=== PATIENT | female | born 1990 | race Caucasian/White ===

== ENCOUNTER 2020-05-24 08:53 | Outpatient (REF) | payer MEDICAID, SELFPAY ==
[2020-05-25 09:38] LABS: BV Int Neg Control Negative (Negative); BV Int Pos Control Positive (Positive)
[2020-05-25 21:12] LABS: C. trachomatis RNA TMA NOT DETECTED (NOT DETECTED); N. gonorrhoeae RNA TMA NOT DETECTED (NOT DETECTED)
[2020-06-01 05:52] LABS: HPV 16 RNA NOT DETECTED (NOT DETECTED); HPV mRNA E6/E7 rflx Detected (Not Detected)
== END 2020-05-24 08:54 | disposition home or self-care (01) ==
LOC: HO.LAB 08:53
PROVIDERS: Visit Provider Obstetrics & Gynecology
DX: Z01.419 Encounter for gynecological examination (general) (routine) without abnormal findings (principal); Z11.3 Encounter for screening for infections with a predominantly sexual mode of transmission
CPT/HCPCS: 36415; 87480; 87491; 87510; 87591; 87624; 87625; 87660; 88142

== ENCOUNTER 2020-06-23 13:03 | Outpatient (REF) | payer MEDICAID, SELFPAY ==
[2020-06-24 09:21] LABS: CT PCR NOT DETECTED (Not Detect.); NG PCR NOT DETECTED (Not Detect.)
[2020-06-24 11:30] LABS: BV Int Neg Control Negative (Negative); BV Int Pos Control Positive (Positive)
== END 2020-06-23 13:04 | disposition home or self-care (01) ==
LOC: HO.LAB 13:03
PROVIDERS: Visit Provider Obstetrics & Gynecology
DX: R87.612 Low grade squamous intraepithelial lesion on cytologic smear of cervix (LGSIL) (principal); Z11.3 Encounter for screening for infections with a predominantly sexual mode of transmission; A59.9 Trichomoniasis, unspecified
CPT/HCPCS: 57454; 87480; 87491; 87510; 87591; 87660; 88305; 88342; 88360; 99212

== ENCOUNTER 2021-02-23 18:38 | Emergency (ER) | payer MEDICAID, SELFPAY ==
[2021-02-23 19:22] VITALS: BP 112/68; PULSE 76; RESP 16; TEMP 36.6; O2SAT 100; BMI 20.8
--- NOTE | 2021-02-23 20:25 | ED_ITS ---
HPI - Dental/Oral General Chief complaint: Dental/Oral Stated complaint: tooth pain Time Seen by Provider: 02/23/21 20:24 Source: patient and pulmonologist Mode of arrival: ambulatory Limitations: no limitations History of Present Illness HPI Narrative: 30-year-old female in for evaluation of dental pain and facial swelling. Patient been having dental decay and dental pain over the left canine tooth, swelling of the left maxillary area, no fever, no chills. Related Data Previous Rx's Medication Instructions Recorded prenat.vits,willem,[id number] 1 tab PO DAILY #90 tab 05/24/20 metronidazole 500 mg tablet 500 mg PO BID #14 tab 05/25/20 metronidazole 0.75 % vaginal gel 1 appful VAGINAL BEDTIME 5 Days 07/04/20 (Metrogel Vaginal) #70 g amoxicillin 500 mg capsule 500 mg PO Q8H #20 cap 02/23/21 ibuprofen 800 mg tablet 800 mg PO TID PRN #20 tab 02/23/21 Allergies Allergy/AdvReac Type Severity Reaction Status Date / Time No Known Allergies Allergy Unverified 06/23/20 13:19 [No Known Allergies*] Review of Systems Review of Systems: All other systems are reviewed and are negative Constitutional: Reports as per HPI and Reports no additional constitutional complaints Eyes: Reports as per HPI and Reports no additional eye complaints Reports system reviewed and no additional complaints, except as documented Cardiovascular: Reports as per HPI and Reports no additional cardiovascular complaints Respiratory: Reports as per HPI and Reports no additional respiratory complaints Gastrointestinal: Reports as per HPI and Reports no additional gastrointestinal complaints Genitourinary: Reports no additional female genitourinary complaints Musculoskeletal: Reports no additional musculoskeletal complaints Skin/Breast: Reports system reviewed and no additional complaints, except as docu Psychiatric: Reports no additional psychiatric complaints Endocrine: Reports no additional endocrine complaints Hematologic/Lymphatic: Reports no additional hematologic/lymphatic complaints Allergic/Immunologic: Reports no additional allergic/immunologic complaints Reports system reviewed and no additional complaints, except as documented and Reports Abnormal speech present [facility] Past Medical History Medical History No known health problems Social History Social History Alcohol intake: never Advance Directives: No Advance Directives Information Provided: No Patient : No Sexual orientation: Straight/Heterosexual Gender identity: Female Physical Exam Vital Signs: Vital Signs: Last Vital Signs Temp 97.8 F 02/23/21 19:22 Pulse 76 02/23/21 19:22 Resp 16 02/23/21 19:22 BP 112/68 02/23/21 19:22 Pulse Ox 100 02/23/21 19:22 Body Mass Index 20.8 vital signs have been reviewed as appeared to be correct. Blood pressure normal. Heart rate normal. Respiration rate normal. Temperature normal. Oxygen saturation normal. Appearance: Alert. Oriented X3. No acute distress. Head: Normal external exam. Normocephalic. Atraumatic. No Moy signs noted. No raccoon eyes noted . Face: Mild swelling and tenderness without fluctuation over left maxillary area, left upper canine tooth lows with tenderness and decay, no discrete fluctuation or gum abscess. Eyes: PERRLA. EOMI. Conjunctiva and sclera normal. Eyelids normal. ENT: TM's Normal. Pharynx normal. Uvula midline. Moist mucous membranes. No trismus noted. No drooling noted. No muffled voice noted. Neck: Normal inspection. Neck supple. FROM. No adenopathy. Thyroid Normal. No me ningeal signs. No neck mass noted. CVS: Normal heart rate and rhythm. Heart sound normal. No murmurs noted. Pulses normal throughout. Respiratory: No respiratory distress. Painless inspiration. Breath sounds normal. No wheezes/rales/rhonchi noted. Chest nontender. No accessory muscle usage noted or decreased air movement noted. Abdomen: Soft and nontender. Bowel sounds normal in all 4 quadrants. No distention noted. No organomegaly noted. No visible injury noted. Back: No CVA tenderness. Full range of motion noted. Skin: Skin warm and dry. Normal skin color. Normal skin turgor. No ra shes/lesions/lacerations noted. Extremities: No lower extremity edema. Extremities exhibit normal range of motion. Extremities nontender. Neuro: Oriented X 3. Cranial nerve exam: II-XII are grossly intact No motor deficit. No sensory deficit. Reflexes normal. Course Course Course Narrative: Assessment and plan. 30-year-old female came in for a dental infection and facial cellulitis. Will start on amoxicillin, NSAIDs, follow-up with dentist. Discharge Plan Discharge Clinical Impression: Toothache, Cellulitis of face Patient Disposition: Home, Self-Care Instructions: Cellulitis (ED), Toothache (ED) Additional Instructions: follow-up with your dentist in 2 days. Prescriptions: New amoxicillin 500 mg capsule 500 mg PO Q8H Qty: 20 RF: 0 ibuprofen 800 mg tablet 800 mg PO TID PRN (Reason: pain) Qty: 20 RF: 0 No Action metronidazole 500 mg tablet 500 mg PO BID Qty: 14 RF: 1 metronidazole [Metrogel Vaginal] 0.75 % gel 1 appful vaginal BEDTIME 5 Days Qty: 70 RF: 0 prenat.vits,willem,[id number] Tablet 1 tab PO DAILY Qty: 90 RF: 3
[2021-02-23 20:40] VITALS: BP 126/71; PULSE 75; RESP 18; TEMP 37; O2SAT 100
[2021-02-23] MEDS: Ibuprofen 800 MG TABLET PO (20:40)
== END 2021-02-23 20:44 | disposition home or self-care (01) ==
PROVIDERS: Emergency Provider Emergency Medicine
DX: K08.89 Other specified disorders of teeth and supporting structures (principal); L03.211 Cellulitis of face
CPT/HCPCS: 99283

== ENCOUNTER 2022-01-12 15:49 | Emergency (ER) | payer MEDICAID, SELFPAY ==
[2022-01-12 16:44] VITALS: BP 131/82; PULSE 88; RESP 18; TEMP 37.2; O2SAT 100; BMI 21.4
--- NOTE | 2022-01-12 19:30 | ED_ITS ---
HPI - General Adult General Chief complaint: General Medical Stated complaint: vaginal infection Time Seen by Provider: 01/12/22 19:24 Source: patient Mode of arrival: ambulatory Limitations: language barrier History of Present Illness HPI narrative: 31-year-old female presents with vaginal itching, labial swelling, and vaginal discharge. She has had similar episodes in the past where she was diagnosed with bacterial vaginosis, and feels that this is similar. She has had the same sexual partner, and does not believe that she is at risk for sexually transmitted infections at this time. She has been using [id number]-[id number] medications for yeast with poor effect. She has had for pregnancies with vaginal delivery. She does not report any pelvic pain, abdominal pain, dysuria, fevers, chills, nausea, vomiting, or weakness. Onset (ago): day(s) (3) Location: genitals Radiation: non-radiation Severity: moderate Severity scale (1-10): 6 Quality: burning Pain Consistency: constant Relieving factors: none Exacerbating factors: movement Associated symptoms: denies other symptoms Treatments prior to arrival: other (OTC yeast treatments) Related Data Previous Rx's Medication Instructions Recorded prenat.vits,willem,[id number] 1 tab PO DAILY #90 tabs 05/24/20 metronidazole 500 mg tablet 500 mg PO BID #14 tabs 05/25/20 metronidazole 0.75 % (37.5 mg/5 1 appful vaginal BEDTIME 5 days 07/04/20 gram) vaginal gel (Metrogel #70 grams Vaginal) amoxicillin 500 mg capsule 500 mg PO Q8H #20 caps 02/23/21 ibuprofen 800 mg tablet 800 mg PO TID PRN pain #20 tabs 02/23/21 metronidazole 500 mg tablet 500 mg PO Q12H 7 days #14 tabs 01/12/22 Allergies Allergy/AdvReac Type Severity Reaction Status Date / Time No Known Allergies Allergy Verified 01/12/22 16:44 [No Known Allergies*] Review of Systems Review of Systems: Constitutional: No Fever, No Chills ENT/Mouth: No sore throat, No Rhinorrhea Eyes: No Eye Pain, No Redness Cardiovascular: No Chest Pain, No SOB Respiratory: No Cough, No Sputum, No Wheezing Gastrointestinal: No Nausea, No Vomiting, No Diarrhea, no abdominal pain, Genitourinary: No irregular bleeding, No Dysuria, No Urinary Frequency, no pelvic pain, positive labial swelling and vaginal discharge Musculoskeletal: No Myalgias Skin: No rash Neuro: No Weakness, No Headache Psych: No Anxiety/Panic, No Depression Heme/Lymph: No bruising, No Lymphadenopathy Endocrine: No Polyuria, No Polydipsia Yes all other systems are reviewed and are negative [facility] Past Medical History Attestation statement: The following information was validated with the patient. Source: old records reviewed Medical History No known health problems Social History Social History Alcohol intake: never Advance Directives: No Advance Directives Information Provided: No Sexual orientation: Straight/Heterosexual Gender identity: Female Physical Exam ED Vital Signs: Vital Signs - 24 hr 01/12/22 16:44 Temperature 98.9 F Pulse Rate 88 Respiratory Rate 18 Blood Pressure 131/82 Pulse Oximetry 100 Oxygen Delivery Method Room Air BMI result Body Mass Index 21.4 Appearance: Alert. Oriented X3. No acute distress. Eyes: Pupils equal, round and reactive to light. ENT: Pharynx normal. Neck: Normal inspection. Neck supple. CVS: Normal heart rate and rhythm. Pulses normal. Respiratory: No respiratory distress. Breath sounds normal. Abdomen: Soft and nontender. Skin: Skin warm and dry. Normal skin color. Normal skin turgor. Extremities: No lower extremity edema. Gait well-balanced well coordinated. Neuro: No motor deficit. No sensory deficit. Cranial nerves 2-12 intact. General: Yes Bimanual renal exam normal bilaterally and Yes no CVA tenderness External Female Exam: normal appearance of the urethra, No Abnormal introitus, external swelling and No laceration Speculum Exam - Vagina: abnormal vaginal discharge white; not malodorous and not frothy, not erythematous, no foreign bodies, no lesions, No vaginal bleeding, No tissue present in vagina, no masses, swelling and introitus not gaping Speculum Exam - Cervix: normal appearance of the cervix, normal palpation, Cervical os closed, no masses, multiparous, not patulous and nontender Bimanual exam- vagina & uterus: normal bimanual exam, normal palpation, No Cervical tenderness present and no cervical motion tenderness Bimanual Exam- Adnexa, other: normal adnexae OB/external & speculum: no foreign bodies, no tissue noted in vagina and vaginal bleeding Back/Spine/Pelvis Back: no CVA tenderness Course Course Course Narrative: 31-year-old female presents with vaginal itching, labial swelling, and vaginal discharge. States that she has been using [id number]-[id number] vaginal ointments and products to help reduce the pain, swelling and itching. She has a history Gardnerella and Trichomonas in the past. She has been with the same sexual partner, does not believe that she is at risk for sexually transmitted infections at this time. She has had 4 vaginal deliveries without any complications. She does not report sexual trauma, assault or abuse. I did discuss pelvic exam with this patient, who agrees with plan. Will order trichomoniasis, BV, CT and she. At this time patient respectfully declines chlamydia and gonorrhea treatment, and does understand the these tests come back positive she should return for treatment. Will treat for bacterial vaginosis and yeast, topical hydrocortisone treatment 2% for labial inflammation. Topical hydrocortisone 2% preferred over the oral prednisone to reduce candidiasis flourishing. staff interpreter and [employer] at bedside for office nurse during pelvic exam. Will treat with Flagyl and Diflucan. Bilateral labia minora and majora erythematous and swollen consistent with vaginitis. Copious amounts of thick white discharge, no cervical motion tenderness, no adnexal tenderness, low likelihood of PID. Patient verbalized understanding of and agrees to plan of care discharge home. Verbalized understanding of signs and symptoms indicating need for emergent intervention. Understands she must follow-up with community health advocate if symptoms persist, staff interpreter utilized for all correspondence. Google translate utilized for discharge instructions. Medical Decision Making Differential Diagnosis Differential Diagnosis: STI, candidiasis, BV, vaginitis, PID Medical Records Medical records reviewed: Yes I reviewed the patient's medical records. Lab Data Lab results reviewed: Yes I reviewed the patient's lab results. Discharge Plan Discharge Clinical Impression: Vaginitis, Bacterial vaginosis Patient Disposition: Home, Self-Care Instructions: Bacterial Vaginosis (ED), Vaginal Discharge (ED) Additional Instructions: You were evaluated for vaginal discharge and swelling. We are treating you for bacterial vaginitis with Flagyl 500 mg twice a day for the next 7 days. Do not drink alcohol while taking this medication. For vaginal labial swelling, apply hydrocortisone cream twice a day. Please follow-up with community health advocate if symptoms worsen. I referred you to Dr. Reeder. Thank you for choosing this emergency department for evaluation. Please follow-up with primary care physician as needed. Return to the emergency department for any new, concerning, or worsening symptoms. Prescriptions: New metronidazole 500 mg tablet 500 mg PO Q12H 7 Days Qty: 14 0RF No Action metronidazole 500 mg tablet 500 mg PO BID Qty: 14 1RF metronidazole [Metrogel Vaginal] 0.75 % gel 1 appful vaginal BEDTIME 5 Days Qty: 70 0RF amoxicillin 500 mg capsule 500 mg PO Q8H Qty: 20 0RF ibuprofen 800 mg tablet 800 mg PO TID PRN (Reason: pain) Qty: 20 0RF prenat.vits,willem,blu-[id number]-jistr Tablet 1 tab PO DAILY Qty: 90 3RF Referrals: Alberto Reeder MD [Physician] - 1 week (Vaginitis) Stand Alone Forms: Work/School Release Discharge Date/Time: 01/12/22 22:37
[2022-01-12] MEDS: metroNIDAZOLE 500 MG TABLET PO (22:21)
[2022-01-12] MEDS: Fluconazole 150 MG TABLET PO (22:21)
[2022-01-12] MEDS: Hydrocortisone 2.5 % Rectal Cr 30 GM TUBE 1 APPL PR (22:21)
[2022-01-13 11:56] LABS: CT PCR NOT DETECTED (Not Detect.); NG PCR NOT DETECTED (Not Detect.)
[2022-01-13 14:07] LABS: BV Int Neg Control Negative (Negative); BV Int Pos Control Positive (Positive)
== END 2022-01-12 22:37 | disposition home or self-care (01) ==
PROVIDERS: Nurse Practitioner Family; Emergency Provider Emergency Medicine Emergency Medical Services
DX: N76.0 Acute vaginitis (principal)
CPT/HCPCS: 87480; 87491; 87510; 87591; 87660; 99282; 99283

== ENCOUNTER 2023-01-11 12:16 | Emergency (ER) | payer MEDICAID, SELFPAY ==
[2023-01-11 12:30] VITALS: BP 113/82; RESP 19; TEMP 36.6; BMI 21.2
--- NOTE | 2023-01-11 12:32 | ED.DENTAL ---
HPI - Dental/Oral General Chief complaint: Dental/Oral Stated complaint: Facial swelling Time Seen by Provider: 01/11/23 12:31 Source: patient Mode of arrival: ambulatory Limitations: no limitations History of Present Illness HPI Narrative: 32 yo female presenting with left upper dental pain and left upper facial swelling that started yesterday and got worse today. She has 2 broken upper teeth on the left side and that is where the pain is. She states her gums hurt, the pain is radiating to the left ear and head. She is fully able to open and close the jaw. She denies any fevers, chills or drainage of pus from the area. She does not have a dentist. MD Complaint: tooth pain Location: Tooth # (10 & 11) Onset (ago): day(s) (1) Duration: worsening Severity: severe Severity scale (1-10): 8 Relieving factors: nothing Exacerbating factors: chewing Context: history of dental caries and poor dental care Associated symptoms: gum swelling and ear pain Treatment prior to arrival: none Related Data Previous Rx's Medication Instructions Recorded prenat.vits,willem,qdv-etft-[id number] 1 tab PO DAILY #90 tabs 05/24/20 metronidazole 500 mg tablet 500 mg PO BID #14 tabs 05/25/20 metronidazole 0.75 % (37.5 mg/5 1 appful vaginal BEDTIME 5 days 07/04/20 gram) vaginal gel (Metrogel #70 grams Vaginal) amoxicillin 500 mg capsule 500 mg PO Q8H #20 caps 02/23/21 ibuprofen 800 mg tablet 800 mg PO TID PRN pain #20 tabs 02/23/21 metronidazole 500 mg tablet 500 mg PO Q12H 7 days #14 tabs 01/12/22 fluconazole 150 mg tablet 150 mg PO Q3D 2 doses #2 tabs 01/15/22 (Diflucan) amoxicillin 875 mg-potassium 1 tab PO BID #20 tabs 01/11/23 clavulanate 125 mg tablet chlorhexidine gluconate 0.12 % 15 ml buccal BID #473 mL 01/11/23 mouthwash (Peridex) ibuprofen 600 mg tablet 600 mg PO Q8H PRN pain #30 tabs 01/11/23 tramadol 50 mg tablet 50 mg PO BID PRN severe pain 01/11/23 (scale score 7-10) #6 tabs Allergies Allergy/AdvReac Type Severity Reaction Status Date / Time No Known Allergies Allergy Verified 01/11/23 12:30 [No Known Allergies*] Review of Systems Review of Systems: Yes all other systems are reviewed and are negative [facility] Past Medical History Medical History No known health problems Social History Social History Alcohol intake: never Advance Directives: No Sexual orientation: Straight/Heterosexual Gender identity: Female Physical Exam Vital Signs: Vital Signs: Last Vital Signs Temp 98 F 01/11/23 12:30 Resp 19 01/11/23 12:30 BP 113/82 01/11/23 12:30 O2 Del Method Room Air 01/11/23 12:30 BMI result Body Mass Index 21.2 Appearance: Alert. Oriented X3. No acute distress. Head/face: normocephalic, atraumatic. mild/moderate swelling of the left maxillary area. Eyes: normal inspection. no periorbital swelling or erythema ENT: Pharynx w/ moist mucus membranes. 2 broken teeth #10 and 11 with associated gingival erythema and tenderness, no palpable fluctuant areas. broken teeth are not mobile. No tonsillar swelling or exudate. Neck: Normal inspection. Neck supple.No anterior neck swelling Respiratory: No respiratory distress. Skin: Skin warm and dry. Normal skin color. Normal skin turgor. No rashes. Extremities: Normal inspection x4, no joint swelling Neuro/psych: Oriented X 3. grossly normal, nonfocal Medical Decision Making Medical Decision Making MDM Narrative: 32 yo female presenting with left upper dental pain and associated left upper facial swelling. exam is c/w abscess. no trismus, no neck swelling. no fluctuant areas on exam amenable to I&D today. will start abx, pain control, and refer to dental. emergency list given to patient along w/ return precautions. comfortable w/ discharge home. Differential Diagnosis Differential Diagnoses: The differential diagnosis associated with the presentation includes dental abscess, dental trauma, toothache, sinus infection External Record Review External record reviewed: Prior outpatient labs Tests considered The following testing was considered but not selected: considered labs work and CT scan of her facial bones Prescription Management I considered prescription management with: Pain Medication and Antibiotic Chronic Conditions Patient?s care impacted by: Other (poor dental care) Critical Care Time Critical Care Time Critical Care Time: No Discharge Plan Discharge Clinical Impression: Abscess, dental Patient Disposition: Home, Self-Care Instructions: Dental Abscess (ED) Additional Instructions: Take the prescribed antibiotics as directed, complete the entire course and do not miss any doses Follow up with a dentist as soon as possible If you develop new or worsening symptoms call 911 or come back to the ER for further evaluation. Prescriptions: New amoxicillin-pot clavulanate 875-125 mg tablet 1 tab PO BID Qty: 20 0RF ibuprofen 600 mg tablet 600 mg PO Q8H PRN (Reason: pain) Qty: 30 0RF chlorhexidine gluconate [Peridex] 0.12 % mouthwash 15 ml buccal BID Qty: 473 0RF tramadol 50 mg tablet 50 mg PO BID PRN (Reason: severe pain (scale score 7-10)) Qty: 6 0RF No Action metronidazole 500 mg tablet 500 mg PO BID Qty: 14 1RF metronidazole [Metrogel Vaginal] 0.75 % gel 1 appful vaginal BEDTIME 5 Days Qty: 70 0RF metronidazole 500 mg tablet 500 mg PO Q12H 7 Days Qty: 14 0RF fluconazole [Diflucan] 150 mg tablet 150 mg PO Q3D Qty: 2 0RF amoxicillin 500 mg capsule 500 mg PO Q8H Qty: 20 0RF ibuprofen 800 mg tablet 800 mg PO TID PRN (Reason: pain) Qty: 20 0RF prenat.vits,willem,[id number] Tablet 1 tab PO DAILY Qty: 90 3RF Interventions: ED Discharge Assessment Last Done: 01/11/23 12:35 Discharge Date/Time: 01/11/23 12:37
== END 2023-01-11 12:37 | disposition home or self-care (01) ==
LOC: HO.ED 12:36
PROVIDERS: Emergency Provider Emergency Medicine Emergency Medical Services
DX: K04.7 Periapical abscess without sinus (principal); K08.89 Other specified disorders of teeth and supporting structures
CPT/HCPCS: 99282; 99283

== ENCOUNTER 2024-04-11 13:14 | Emergency (ER) | payer SELFPAY ==
--- NOTE | ~2024-04-11 | XR_ITS ---
CLINICAL HISTORY: Coughing 1 view chest x-ray Comparison: CR/SR - CHEST 2 VIEWS - 08/23/18 18:03 EDT Findings: The lungs are clear. Heart size is normal. No acute fracture. IMPRESSION: 1. No acute findings. This document has been electronically signed by: Sona Rasmussen MD on 04/11/2024 15:41:35
[2024-04-11 14:11] VITALS: BP 119/76; PULSE 83; RESP 18; TEMP 36.6; O2SAT 100; BMI 21.0
--- NOTE | 2024-04-11 14:14 | ED.GENADULT ---
HPI - General Adult General Chief complaint: Upper Respiratory Symptoms Stated complaint: covid symptoms Time Seen by Provider: 04/11/24 14:15 Source: patient Mode of arrival: ambulatory Limitations: no limitations History of Present Illness ED Provider: Giovanni Otero HPI narrative: 33 yold female presents to the ED for sore throat, back pain, headache, and slight cough. patient states her recent tested positive for covid. patient denies any chest pain or shortness of breath Related Data Previous Rx's ?Medication ?Instructions ?Recorded prenat.vits,willem,lks-ejoh-euypu 1 tab PO DAILY #90 tabs 05/24/20 metronidazole 500 mg tablet 500 mg PO BID #14 tabs 05/25/20 metronidazole 0.75 % (37.5 mg/5 1 appful vaginal BEDTIME 5 days 07/04/20 gram) vaginal gel (Metrogel #70 grams Vaginal) amoxicillin 500 mg capsule 500 mg PO Q8H #20 caps 02/23/21 ibuprofen 800 mg tablet 800 mg PO TID PRN pain #20 tabs 02/23/21 metronidazole 500 mg tablet 500 mg PO Q12H 7 days #14 tabs 01/12/22 fluconazole 150 mg tablet 150 mg PO Q3D 2 doses #2 tabs 01/15/22 (Diflucan) amoxicillin 875 mg-potassium 1 tab PO BID #20 tabs 01/11/23 clavulanate 125 mg tablet chlorhexidine gluconate 0.12 % 15 ml buccal BID #473 mL 01/11/23 mouthwash (Peridex) ibuprofen 600 mg tablet 600 mg PO Q8H PRN pain #30 tabs 01/11/23 tramadol 50 mg tablet 50 mg PO BID PRN severe pain 01/11/23 (scale score 7-10) #6 tabs amoxicillin 875 mg-potassium 1 tab PO Q12H 10 days #20 tabs 04/11/24 clavulanate 125 mg tablet naproxen 500 mg tablet 500 mg PO BID PRN pain 7 days #14 04/11/24 tabs Allergies Allergy/AdvReac Type Severity Reaction Status Date / Time No Known Allergies Allergy Verified 04/11/24 14:13 [No Known Allergies*] Review of Systems Review of Systems: Sore throat, back pain, headache since yesterday coughing Yes all other systems are reviewed and are negative PMFSH Past Medical History Medical History No known health problems Social History Social History Alcohol intake: never Advance Directives: No Advance Directives Information Provided: No Sexual orientation: Straight/Heterosexual Gender identity: Female Physical Exam ED Vital Signs: Vital Signs - 24 hr 04/11/24 14:11 04/11/24 16:25 Temperature 97.9 F 97.9 F Pulse Rate 83 83 Respiratory Rate 18 18 Blood Pressure 119/76 119/76 Pulse Oximetry 100 100 Oxygen Delivery Method Room Air Room Air BMI result Body Mass Index 21.0 Const General: cooperative, healthy appearing, comfortable, no acute distress, well developed, alert, awake and Physically active Orientation/consciousness: patient oriented x3 HENMT Head: Yes normal to inspection, Yes No palpable skull fracture present, Yes normocephalic and Yes atraumatic Ears: hearing grossly normal bilaterally, external ears normal, TM's normal bilaterally, TM normal on the right, TM normal on the left, EAC's normal, mastoids normal and no periauricular adenopathy Throat: Yes posterior oropharynx normal, Yes tonsils normal and Yes uvula midline Eyes General: appearance normal, both eyes and all related structures Neck Neck: Yes normal visual inspection, Yes full ROM, Yes no lymphadenopathy, Yes no meningeal signs, Yes trachea midline, Yes supple, No anterior neck swelling and No tender Chest Chest palpation & inspection: normal inspection of the chest and normal palpation of entire chest wall Resp Effort & Inspection: normal respiratory effort and able to speak in complete sentences Auscultation: clear to auscultation bilaterally Cardio Jugular venous distension: no JVD Heart sounds: S1 normal heart sound present and S2 normal heart sound present GI Inspection: Yes normal to inspection Palpation (GI): Soft to palpation, not firm, nontender, no guarding and not rigid General: No CVA tenderness and Yes no CVA tenderness Back/Spine/Pelvis Back: no CVA tenderness, No CVA tenderness and No back tenderness Skin General skin exam: no rashes or lesions noted, elasticity normal and turgor normal Neuro General: patient oriented x3, gait normal, tone normal, moves all extremities, Normal light touch and pain sensation, no meningeal signs, no focal motor deficits, CN's II-XI intact bilaterally and normal sensation to monofilament Extrem General: Yes normal to inspection, Yes full ROM and Yes capillary refill normal Psych Appearance: grossly normal, well kempt and not disheveled Course Course Course Narrative: RME: 33-year-old female presents to ED for URI symptoms sore throat, back pain, headache and slight coughing. Patient's tested positive for COVID. Vital signs stable SARs strep x-ray ordered. Medical Decision Making Medical Decision Making [facility] Narrative: 33-year-old female presents to ED for URI symptoms. Patient is positive for strep, RSV. Chest x-ray negative for pneumonia. Patient well-appearing. Patient explained worrisome signs and informed to return to the ED immediately. Not suspecting peritonsillar abscess, retropharyngeal abscess, janay angina, epiglottitis, respiratory failure, MS, PE, CHF, pericarditis, myocarditis, respiratory failure, or any other life threatening etiology.. Differential Diagnosis Differential Diagnoses: The differential diagnosis associated with the presentation includes (Pneumonia, COVID, RSV, influenza) Admission/Observation Consideration of admission/observation: Escalation of care including admission/observation considered Lab Data [facility] Lab Attestation statement: I reviewed the patient's lab results. Labs: Lab Results 04/11/24 04/11/24 Range/Units 14:28 14:29 Influenza Type A (PCR) NEGATIVE (Negative) Influenza Type B (PCR) NEGATIVE (Negative) RSV RNA Qual (PCR) NEGATIVE (Negative) SARS-CoV-2 RNA (RT-PCR) POSITIVE A (Negative) S. pyogenes GrpA TIA Positive A (Negative) Independent Interpretation I performed an independent interpretation of an: Plain X-Ray Radiology Impression Discussion of test interpretation with radiology: I have reviewed the radiologist's reading. Independent Historian Clinical information obtained from an independent historian. History obtained from or confirmed by: Other (Patient) External Record Review External record reviewed: Other (Prior visits) Prescription Management I considered prescription management with: Pain Medication and Antibiotic Discharge Plan Discharge Clinical Impression: COVID-19, Strep throat Patient Disposition: Home, Self-Care Instructions: Strep Throat (ED), COVID-19 (Coronavirus Disease 2019) (ED) Additional Instructions: You tested positive for COVID and strep. Return to the ED immediately for any chest pain, shortness of breath, coughing up blood, drooling, change in voice, or any other concerning symptoms. Recommend follow-up with primary care provider. Prescriptions: New amoxicillin-pot clavulanate 875-125 mg tablet 1 tab PO Q12H 10 Days Qty: 20 0RF naproxen 500 mg tablet 500 mg PO BID PRN (Reason: pain) 7 Days Qty: 14 0RF No Action metronidazole 500 mg tablet 500 mg PO BID Qty: 14 1RF metronidazole [Metrogel Vaginal] 0.75 % gel 1 appful vaginal BEDTIME 5 Days Qty: 70 0RF metronidazole 500 mg tablet 500 mg PO Q12H 7 Days Qty: 14 0RF fluconazole [Diflucan] 150 mg tablet 150 mg PO Q3D Qty: 2 0RF amoxicillin 500 mg capsule 500 mg PO Q8H Qty: 20 0RF ibuprofen 800 mg tablet 800 mg PO TID PRN (Reason: pain) Qty: 20 0RF amoxicillin-pot clavulanate 875-125 mg tablet 1 tab PO BID Qty: 20 0RF ibuprofen 600 mg tablet 600 mg PO Q8H PRN (Reason: pain) Qty: 30 0RF chlorhexidine gluconate [Peridex] 0.12 % mouthwash 15 ml buccal BID Qty: 473 0RF tramadol 50 mg tablet 50 mg PO BID PRN (Reason: severe pain (scale score 7-10)) Qty: 6 0RF prenat.vits,willem,eoz-wfcu-ofper Tablet 1 tab PO DAILY Qty: 90 3RF Stand Alone Forms: Work/School Release Interventions: ED Discharge Assessment Last Done: 04/11/24 16:25 Discharge Date/Time: 04/11/24 16:26 Print Language: Greek
[2024-04-11 14:43] LABS: IDNOW Serial# 58CA691E; Strep A Nucleic Acid Positive (Negative)
[2024-04-11 15:23] LABS: Influenza A PCR NEGATIVE (Negative); Influenza B PCR NEGATIVE (Negative); Resp Syncy Virus RNA Qual PCR NEGATIVE (Negative); SARS COV2 PCR INHOUSE POSITIVE (Negative)
[2024-04-11 16:25] VITALS: BP 119/76; PULSE 83; RESP 18; TEMP 36.6; O2SAT 100
== END 2024-04-11 16:26 | disposition home or self-care (01) ==
PROVIDERS: Physician Assistant; Emergency Provider Emergency Medicine
DX: U07.1 COVID-19 (principal); J02.0 Streptococcal pharyngitis; R05.9 Cough, unspecified; M54.50 Low back pain, unspecified
CPT/HCPCS: 0241U; 71046; 87651; 99282; 99283

== ENCOUNTER → 2024-04-11 14:14 | Outpatient (BNV) | payer SELFPAY | PROVIDERS: Emergency Provider Emergency Medicine; Visit Provider Nuclear Medicine | DX: R05.9 Cough, unspecified (principal) | CPT/HCPCS: 71046 ==

== ENCOUNTER 2024-07-03 08:05 | Emergency (ER) | payer MEDICAID, SELFPAY ==
[2024-07-03 08:08] VITALS: BP 143/86; PULSE 107; RESP 16; TEMP 35.9; O2SAT 100; BMI 20.6
--- NOTE | 2024-07-03 08:53 | ED_ITS ---
HPI - General Adult General Chief complaint: Skin/Abscess/Foreign Body Stated complaint: itcy hands and thighs Time Seen by Provider: 07/03/24 08:48 Source: patient Mode of arrival: ambulatory Limitations: no limitations History of Present Illness ED Provider: HPI narrative: Patient complaining of rash in the inguinal area and pubic area for last 2 days also has itching in the index finger. Patient is not diabetic no vaginal discharge Related Data Previous Rx's ?Medication ?Instructions ?Recorded prenat.vits,willem,mgc-dqnl-nlrpn 1 tab PO DAILY #90 tabs 05/24/20 metronidazole 500 mg tablet 500 mg PO BID #14 tabs 05/25/20 metronidazole 0.75 % (37.5 mg/5 1 appful vaginal BEDTIME 5 days 07/04/20 gram) vaginal gel (Metrogel #70 grams Vaginal) amoxicillin 500 mg capsule 500 mg PO Q8H #20 caps 02/23/21 ibuprofen 800 mg tablet 800 mg PO TID PRN pain #20 tabs 02/23/21 metronidazole 500 mg tablet 500 mg PO Q12H 7 days #14 tabs 01/12/22 fluconazole 150 mg tablet 150 mg PO Q3D 2 doses #2 tabs 01/15/22 (Diflucan) amoxicillin 875 mg-potassium 1 tab PO BID #20 tabs 01/11/23 clavulanate 125 mg tablet chlorhexidine gluconate 0.12 % 15 ml buccal BID #473 mL 01/11/23 mouthwash (Peridex) ibuprofen 600 mg tablet 600 mg PO Q8H PRN pain #30 tabs 01/11/23 tramadol 50 mg tablet 50 mg PO BID PRN severe pain 01/11/23 (scale score 7-10) #6 tabs amoxicillin 875 mg-potassium 1 tab PO Q12H 10 days #20 tabs 04/11/24 clavulanate 125 mg tablet naproxen 500 mg tablet 500 mg PO BID PRN pain 7 days #14 04/11/24 tabs diphenhydramine HCl 25 mg capsule 50 mg (2 x 25 mg) PO TID PRN 07/03/24 (Allergy (diphenhydramine)) itching #20 caps miconazole nitrate 2 % topical 1 appl topical BID #28 grams 07/03/24 cream Allergies Allergy/AdvReac Type Severity Reaction Status Date / Time No Known Allergies Allergy Verified 07/03/24 08:10 [No Known Allergies*] Review of Systems Review of Systems: Yes all other systems are reviewed and are negative [facility] Past Medical History Medical History No known health problems Social History Social History Alcohol intake: never Advance Directives: No Advance Directives Information Provided: No Sexual orientation: Straight/Heterosexual Gender identity: Female Physical Exam ED Vital Signs: Vital Signs - 24 hr 07/03/24 08:08 Temperature 96.7 F L Pulse Rate 107 H Respiratory Rate 16 Blood Pressure 143/86 H Pulse Oximetry 100 Oxygen Delivery Method Room Air BMI result Body Mass Index 20.6 Appearance: Alert. Oriented X3. No acute distress. Eyes: no pallor or icterus ENT: Pharynx normal. Oral Mucosa moist Neck: Normal inspection. Neck supple. CVS: Normal heart rate and rhythm. Pulses normal. Respiratory: No respiratory distress. Equal air entry bilateral, no wheezing/rales/rhonchi Abd: soft, not tender Skin: Skin warm and dry. Intertrigo rash in inguinal area Extremities: Slight inflammation of the index finger without significant rash Neuro: Oriented X 3. Medical Decision Making Medical Decision Making MDM Narrative: Patient has been to take your rash will prescribe miconazole Discharge Plan Discharge Clinical Impression: Candidal intertrigo Patient Disposition: Home, Self-Care Instructions: Skin Yeast Infection (ED) Additional Instructions: Use cream as prescribed twice a day on the affected area till gets better Report to your PCP/ER if gets worse Prescriptions: New miconazole nitrate 2 % cream 1 appl topical BID Qty: 28 0RF diphenhydramine HCl [Allergy (diphenhydramine)] 25 mg capsule 50 mg PO TID PRN (Reason: itching) Qty: 20 0RF No Action metronidazole 500 mg tablet 500 mg PO BID Qty: 14 1RF metronidazole [Metrogel Vaginal] 0.75 % gel 1 appful vaginal BEDTIME 5 Days Qty: 70 0RF metronidazole 500 mg tablet 500 mg PO Q12H 7 Days Qty: 14 0RF fluconazole [Diflucan] 150 mg tablet 150 mg PO Q3D Qty: 2 0RF amoxicillin 500 mg capsule 500 mg PO Q8H Qty: 20 0RF ibuprofen 800 mg tablet 800 mg PO TID PRN (Reason: pain) Qty: 20 0RF amoxicillin-pot clavulanate 875-125 mg tablet 1 tab PO BID Qty: 20 0RF ibuprofen 600 mg tablet 600 mg PO Q8H PRN (Reason: pain) Qty: 30 0RF chlorhexidine gluconate [Peridex] 0.12 % mouthwash 15 ml buccal BID Qty: 473 0RF tramadol 50 mg tablet 50 mg PO BID PRN (Reason: severe pain (scale score 7-10)) Qty: 6 0RF amoxicillin-pot clavulanate 875-125 mg tablet 1 tab PO Q12H 10 Days Qty: 20 0RF naproxen 500 mg tablet 500 mg PO BID PRN (Reason: pain) 7 Days Qty: 14 0RF prenat.vits,willem,zga-fdxi-ycnqt Tablet 1 tab PO DAILY Qty: 90 3RF Print Language: Swedish
[2024-07-03] MEDS: Fluconazole 150 MG TABLET PO (09:55)
== END 2024-07-03 09:59 | disposition home or self-care (01) ==
PROVIDERS: Emergency Provider Internal Medicine
DX: L30.4 Erythema intertrigo (principal); R21 Rash and other nonspecific skin eruption
CPT/HCPCS: 99281; 99283

== ENCOUNTER 2024-07-14 09:58 | Outpatient (REF) | payer MEDICAID, SELFPAY ==
--- OUTSIDE RECORDS SUMMARY | 2024-07-14 11:05 | XMS_ITS | Encounter Summary ---
Author Organization [employer] Address [address] [place] [address] Care Team Providers Care Licensed Psychiatric Technician Name Role Phone Unavailable Primary Care Provider Unavailabl e Reason for Visit * Reason Onset Date Comments New pt appt 07/12/2024 Encounter Details Date Type Department Care Team (Late st Contact Info) Description 07/12/2024 Telephone [facility] [address] [place] [phone] Venancio Conklin MD [address] [place] [address] [phone] New pt appt Social History Tobacco Use Types Packs/Day Years Used Date Smoking Tobacco: Never Assessed Comments Unknown Sex and Gender Information Value Date Recorded Sex Assigned at Female 02/04/2022 10:39 AM EDT Legal Sex Female 10:39 AM EDT Gender Identity Female 02/04/2022 10:39 AM EDT Sexual Orientation Straight 02/04/2022 10 :39 AM EDT documented as of this encounter Miscellaneous Notes * Telephone Encounter - Melissa Mccord - 07/12/2024 11:53 AM EDT TC placed to patient for scheduling of new patient visit. Agreed to 11-04-2024 with Geovanni No Medical Conditions: Apptmnt reminder and release form sent via mail . documented in this encounter Plan of Treatment Upcoming Encounters Date Type Department Care Team (Late st Contact Info) Description 11/04/2024 9:15 AM EDT Office Visit [facility] [address] [place] [phone] Betty Galarza MD [address] [place], [place] [phone] documented as of this encounter Visit Diagnoses Not on filedocumented in this encounter
--- OUTSIDE RECORDS SUMMARY | 2024-07-14 11:05 | XMS_ITS | Encounter Summary ---
Author Organization [employer] Address [address] [place] [address] Care Team Providers Care Wreath Machine Tender Name Role Phone Betty Galarza MD Primary Care Provider + Reason for Visit * Reason Comments Allergies Encounter Details Date Type Department Care Team ([facility] st Contact Info) Description 07/14/2024 9:20 AM EDT Office Visit [facility] [address] [place] [address] Rash (Primary Dx); Elevated blood pressure reading in office without diagnosis of hypertension Social History Tobacco Use Types Packs/Day Years Used Date Smoking Tobacco: Every Day Cigarettes Smokeless Tobacco: Never Tobacco Cessation:Ready to Q uit: Not Asked; Counseling Given: Not Answered Alcohol Use Standard Drinks/Week Comments Not Currently 0 (1 standard drink = 0.6 oz pur e alcohol) Comments Unknown Sex and Gender Information Value Date Recorded Sex Assigned at Female 02/04/2022 10:39 AM EDT Legal Sex Female 10:39 AM EDT Gender Identity Female 02/04/2022 10:39 AM EDT Sexual Orientation Straight 02/04/2022 10 :39 AM EDT documented as of this encounter Last Filed Vital Signs Vital Sign Reading Time Taken Comments Blood Pressure 147/87 07/14/2024 9:14 AM EDT Pulse 99 07/14/2024 9:14 AM EDT Temperature 36.8 ??C (98.3 ??F) 07/14/2024 9:14 AM ED T Respiratory Rate 17 07/14/2024 9:14 AM EDT Oxygen Saturation 100% 07/14/2024 9:14 AM EDT Inhaled Oxygen Concentration - - Weight 51.3 kg (113 lb 3.2 oz) 07/14/2024 9:14 A M EDT Height - - Body Mass Index 20.91 01/15/2022 12:10 AM EDT documented in this encounter Plan of Treatment Upcoming Encounters Date Type Department Care Team (Late st Contact Info) Description 11/04/2024 9:15 AM EDT Office Visit [facility] [address] [place] [address] Betty Galarza MD [address] [place], [place] [phone] Scheduled Orders Name Type Priority Associated Diagnoses Orde r Schedule CBC auto differential Lab Routine Rash Expected: 07/14/2024 (Approximate), Expires: 07/14/2025 Comprehensive Metabolic Panel Lab Routine Rash Expected: 07/14/2024 (Approximate), Expires: 07/14/2025 Hemoglobin A1c Lab Routine Rash Expected: 07/14/2024 (Approximate), Expires: 07/14/2025 TSH with Reflex to Free T4 Lab Routine Rash Expected: 07/14/2024 (Approximate), Expires: 07/14/2025 Vitamin B12 Lab Routine Rash Expected: 07/14/2024 (Approximate), Expires: 07/14/2025 RPR (Monitor) with Reflex to??Titer Lab Routine Rash Expected: 07/14/2024 (Approximate), Expires: 07/14/2025 Hepatitis B Core Antibody, Total Lab Routine Rash Expected: 07/14/2024 (Approximate), Expires: 07/14/2025 Hepatitis B Surface Antibody, Qualitative Lab Routine Rash Expected: 07/14/2024 (Approximate), Expires: 07/14/2025 Hepatitis B surface antigen, EIA Lab Routine Rash Expected: 07/14/2024 (Approximate), Expires: 07/14/2025 Hepatitis C Antibody with Reflex to HCV, RNA, Quantitative, Real-Time PCR Lab Routine Rash Expected: 07/14/2024 (Approximate), Expires: 07/14/2025 HIV-1/2 Antigen and Antibodies, Fourth Generation, with Reflexes Lab Routine Rash Expected: 07/14/2024 (Approximate), Expires: 07/14/2025 Chlamydia/N. Gonorrhoeae RNA, TMA, Urogenitial Microbiology Routine Rash Ordered: 07/14/2024 T-SPOT??.TB Lab Routine Rash Expected: 07/14/2024 (Approximate), Expires: 07/14/2025 Bacterial Vaginosis Microbiology Routine Rash Expected: 07/14/2024 (Approximate), Expires: 07/14/2025 documented as of this encounter Visit Diagnoses Diagnosis Rash- Primary Rash and other nonspecific skin eruption Elevated blood pressure reading in office without diagnosis of hypertension documented in this encounter Care Teams Wreath Machine Tender Relationship Specialty Start Date End Date Betty Galarza MD [address] [place] [phone] PCP - General Internal Medicine 07/14/24 documented as of this encounter
--- OUTSIDE RECORDS SUMMARY | 2024-07-14 11:05 | XMS_ITS | Encounter Summary ---
Author Organization [employer] Address [address] [place] [address] Care Team Providers Care Can Inspector Name Role Phone Unavailable Primary Care Provider Unavailabl e Encounter Details Date Type Department Care Team (Latest Contact Info) Description 07/09/2024 Travel Social History Tobacco Use Types Packs/Day Years Used Date Smoking Tobacco: Never Assessed Comments Unknown Sex and Gender Information Value Date Recorded Sex Assigned at Female 02/04/2022 10:39 AM EDT Legal Sex Female 10:39 AM EDT Gender Identity Female 02/04/2022 10:39 AM EDT Sexual Orientation Straight 02/04/2022 10 :39 AM EDT documented as of this encounter Plan of Treatment Upcoming Encounters Date Type Department Care Team (Late st Contact Info) Description 11/04/2024 9:15 AM EDT Office Visit [facility] [address] [place] [address] Betty Galarza MD [address] [place], [place] [phone] documented as of this encounter Visit Diagnoses Not on filedocumented in this encounter
--- OUTSIDE RECORDS SUMMARY | 2024-07-14 11:05 | XMS_ITS | Clinical Summary ---
Author Organization [employer] Address [address] [place] [address] Care Team Providers Care Casino Floor Walker Name Role Phone Betty Galarza MD Primary Care Provider + Allergies No known active allergies Medications * This document contains information received from the source organization and may not represent a complete record from that organization. nicotine (Nicoderm CQ) 14 MG/24HR patch Place 1 patch on the skin 1 (one) time each day at the same time. 42 patch 5 08/26/19 25 Active nicotine (Nicoderm CQ) 7 MG/24HR patch Place 1 patch on the skin 1 (one) time each day at the same time. 14 patch 5 08/14/19 25 Active nicotine polacrilex (Commit) 4 MG lozenge Dissolve 1 lozenge (4 mg) in the mouth every 2 (two) hours if needed for smoking cessation. 100 lozenge 5 08/14/19 25 Active Blood Pressure kit 1 each 2 times daily. 1 kit 5 07/15/19 26 Active betamethasone valerate (Valisone) 0.1 % cream Apply topically 2 times daily. 30 g 5 Active predniSONE (Deltasone) 20 MG tablet Take 2 tablets (40 mg) by mouth Once per day for 5 days. 10 tablet 5 07/20/19 25 Active Encounters * This document contains information received from the source organization and may not represent a complete record from that organization. Date Type Department Care Team Description 07/14/2024 9:20 AM EDT Office Visit [facility] [address] [place] [address] Rash (Primary Dx); Elevated blood pressure reading in office without diagnosis of hypertension 07/12/2024 Telephone [facility] [address] [place] [address] Venancio Conklin MD New pt appt 07/09/2024 Travel from Last 3 Months Social History Tobacco Use Types Packs/Day Years [...] Orientation Straight 02/04/2022 10 :39 AM EDT Last Filed Vital Signs Vital Sign Reading [...] oz) 07/14/2024 9:14 A M EDT Height 156.7 cm (5' 1.7 ) 01/15/2022 12:10 AM ED T Body Mass Index 20.91 01/15/2022 12:10 AM EDT Plan of Treatment Upcoming Encounters Date Type Department Care Team (Late st Contact Info) Description 11/04/2024 9:15 AM EDT Office Visit [facility] [address] [place] [phone] Betty Galarza MD [address] [place] [address] Health Maintenance Due Date Last Done Comments Depression Screening 1988 HIV Screening 1988 Lipid Panel 1988 SDOH Screening 1988 Alcohol/Substance Use Screening 2000 Family Planning (PISQ) 07/28/2003 Hepatitis C Screening 2006 DTaP/Tdap/Td Vaccines (1 - Tdap) 07/28/2007 Hepatitis B Vaccines (1 of 3 - 19+ 3-dose series) 07/28/2007 Pneumococcal Vaccine: Pediatrics (0 to 5 Years) and At-Risk Patients (6 to 49) Years) (1 of 2 - PCV) 07/28/2007 Pap Smear 2009 Cervical Cancer Screening 2018 HPV/Cotest 2018 COVID-19 Vaccine (3 - 2023-2 5 season) 2023 01/31/2021, 01/10/2021 Influenza Vaccine (#1) 2023 Tobacco Screening 07/14/2025 07/14/2024 Zoster Vaccines (1 of 2) 2038 RSV Patients and Patients Aged 60 years or older (1 - 1-dose 75+ series) 07/28/2063 HIB Vaccines Aged Out No longer eligi ble based on patient's age to complete this topic HPV Vaccines Aged Out No longer eligi ble based on patient's age to complete this topic Hepatitis A Vaccines Aged Out No long er eligible based on patient's age to complete this topic IPV Vaccines Aged Out No longer eligi ble based on patient's age to complete this topic Meningococcal Vaccine Aged Out No albertina jose luis eligible based on patient's age to complete this topic RSV under 20 months Aged Out No longe r eligible based on patient's age to complete this topic Rotavirus Vaccines Aged Out No longer eligible based on patient's age to complete this topic Insurance [employer] Care Teams Casino Floor Walker Relationship Specialty Start Date End Date Betty Galarza MD [address] [place] [phone] PCP - General Internal Medicine 07/14/24
[2024-07-14 11:50] LABS: MANUAL DIFF FLAG NO
[2024-07-14 12:07] LABS: Estimated Average Glucose 97 mg/dL; Hemoglobin A1C 111.1454 umol/L; Total Hemoglobin (HGBA1C) 3600.0596 umol/L
[2024-07-14 12:08] LABS: Basophils Absolute Auto 0.1 X10*3/uL (0.0-0.2); Basophils Percent Auto 0.8 % (0-2); Eosinophils Absolute Auto 0.1 X10*3/uL (0.0-0.4); Eosinophils Percent Auto 1.5 % (0-4); Hematocrit 40.8 % (37.0-47.0); Hemoglobin 13.4 g/dl (12.0-16.0); Imm Gran Abs Auto 0.01 X10*3/uL (0.00-0.03); Imm Gran Pct Auto 0.1 % (0.0-0.4); Lymphocytes Absolute Auto 2.1 X10*3/uL (1.2-4.9); Lymphocytes Percent Auto 28.9 % (20-40); Mean Corpuscular HGB Conc 32.8 g/dl (31.0-35.0); Mean Corpuscular Hemoglobin 30.2 pg (27.0-33.0); Mean Corpuscular Volume 92.1 fL (80.0-98.0); Mean Platelet Volume 10.7 fL (9.4-12.3); Monocytes Absolute Auto 0.6 X10*3/uL (0.1-1.2); Monocytes Percent Auto 7.9 % (2-11); Neutrophils Absolute Auto 4.4 x10*3/uL (2.0-8.3); Neutrophils Percent Auto 60.8 % (45-73); Platelet Count 261 X10*3/uL (160-400); Red Blood Count 4.43 X10*6/uL (4.20-5.50); Red Cell Distribution Width 13.2 % (11.0-16.0); White Blood Count 7.2 X10*3/uL (4.8-10.8)
[2024-07-14 12:30] LABS: HBS Num1 23.46 mIU/mL (0-7.99); HBc Num1 0.21 S/CO (0.00-0.79); HBsAGNum1 0.26 S/CO (0.00-0.99); HIV AB/AG Nonreactive (Nonreactive); HIV Num 1 0.06 S/CO (0.00-0.99); Hepatitis B Core Antibody Nonreactive (Nonreactive); Hepatitis B Surface Antigen Negative (Negative); ~HepC Num1 0.57 S/CO (0.00-0.79); ~Hepatitis B Surface Antibody REACTIVE (Nonreactive); ~Hepatitis C Antibody Nonreactive (Nonreactive)
[2024-07-14 12:31] LABS: Alanine Aminotransferase 23 U/L (0-31); Albumin Level 4.7 g/dL (3.5-5.0); Alkaline Phosphatase 64 U/L (39-117); Anion Gap 11 (12-20); Aspartate Amino Transferase 21 U/L (5-31); Bilirubin Total 0.4 mg/dL (0.0-1.0); Blood Urea Nitrogen 10 mg/dL (9-16); Calcium 9.9 mg/dL (8.4-10.2); Carbon Dioxide 24 mmol/L (22-29); Chloride 106 mmol/L (96-108); Estimated Glomerular Filt Rate > 60; Glucose Random 86 mg/dL (60-115); Potassium 3.8 mmol/L (3.3-5.1); Sodium 137 mmol/L (135-145); Total Protein 8.2 g/dL (6.5-8.0)
[2024-07-14 12:35] LABS: TSH reflex Free T4 1.41 uIU/mL (0.32-4.0); Vitamin B12 463 pg/mL (200-900)
[2024-07-14 14:37] LABS: CT PCR NOT DETECTED (Not Detect.); NG PCR NOT DETECTED (Not Detect.)
[2024-07-15 09:46] LABS: Bacterial Vaginosis PCR POSITIVE (Negative); Candida Group PCR NOT DETECTED (Not Detect); Candida glab krusei PCR NOT DETECTED (Not Detect); Trichomonas vaginalis PCR NOT DETECTED (Not Detect)
[2024-07-15 11:58] LABS: RPR Rapid Plasma Reagin NON-REACTIVE (NON-REACTIVE)
[2024-07-17 10:10] LABS: TS Negative Control Passed; TS Panel A 0; TS Panel B 0; TS Positive Control Passed; TSpotTB Negative (Negative)
== END 2024-07-14 09:59 | disposition home or self-care (01) ==
LOC: HO.HHCL 09:58
PROVIDERS: Visit Provider Emergency Medicine
DX: R21 Rash and other nonspecific skin eruption (principal)
CPT/HCPCS: 80053; 81515; 82607; 83036; 84443; 85025; 86481; 86592; 86704; 86706; 86803; 87340; 87389; 87491; 87591

== ENCOUNTER 2024-07-18 20:14 | Emergency (ER) | payer MEDICAID, SELFPAY ==
[2024-07-18 20:17] VITALS: BP 136/91; PULSE 91; RESP 16; TEMP 36.8; O2SAT 98; BMI 20.2
--- NOTE | 2024-07-18 20:17 | ED.GENADULT ---
HPI - General Adult General Chief complaint: Skin/Abscess/Foreign Body Stated complaint: rash lower abdomen Time Seen by Provider: 07/18/24 20:25 Source: patient, RN notes reviewed, old records reviewed and educational sign language interpreter Mode of arrival: ambulatory Limitations: language barrier History of Present Illness ED Provider: Leslye HPI narrative: Patient is a 33-year-old female presenting to the emergency department with complaint of pruritic rash to suprapubic area and bilateral groin for the past 2-3 weeks. Seen here on 07/03 for same and prescribed miconazole cream and benadryl. Reports ongoing rash, went to [facility] and was prescribed metronidazole, fluconazole, and prednisone. Symptoms persisted, went back to [facility] and was prescribed hydroxyzine and betamethasone cream. Denies any relief from any of these medications. Denies any abnormal vaginal discharge. Denies fevers or rash in other areas. MD complaint: rash Onset (ago): week(s) Related Data Previous Rx's ?Medication ?Instructions ?Recorded prenat.vits,willem,[id number] 1 tab PO DAILY #90 tabs 05/24/20 metronidazole 500 mg tablet 500 mg PO BID #14 tabs 05/25/20 metronidazole 0.75 % (37.5 mg/5 1 appful vaginal BEDTIME 5 days 07/04/20 gram) vaginal gel (Metrogel #70 grams Vaginal) amoxicillin 500 mg capsule 500 mg PO Q8H #20 caps 02/23/21 ibuprofen 800 mg tablet 800 mg PO TID PRN pain #20 tabs 02/23/21 metronidazole 500 mg tablet 500 mg PO Q12H 7 days #14 tabs 01/12/22 fluconazole 150 mg tablet 150 mg PO Q3D 2 doses #2 tabs 01/15/22 (Diflucan) amoxicillin 875 mg-potassium 1 tab PO BID #20 tabs 01/11/23 clavulanate 125 mg tablet chlorhexidine gluconate 0.12 % 15 ml buccal BID #473 mL 01/11/23 mouthwash (Peridex) ibuprofen 600 mg tablet 600 mg PO Q8H PRN pain #30 tabs 01/11/23 tramadol 50 mg tablet 50 mg PO BID PRN severe pain 01/11/23 (scale score 7-10) #6 tabs amoxicillin 875 mg-potassium 1 tab PO Q12H 10 days #20 tabs 01/05/25 clavulanate 125 mg tablet naproxen 500 mg tablet 500 mg PO BID PRN pain 7 days #14 04/11/24 tabs diphenhydramine HCl 25 mg capsule 50 mg (2 x 25 mg) PO TID PRN 07/03/24 (Allergy (diphenhydramine)) itching #20 caps miconazole nitrate 2 % topical 1 appl topical BID #28 grams 07/03/24 cream cetirizine 10 mg tablet 10 mg PO BID #28 tabs 07/18/24 famotidine 20 mg tablet 20 mg PO DAILY #14 tabs 07/18/24 miconazole nitrate 2 % topical 1 appl topical BID 2 weeks #28 07/18/24 cream grams Allergies Allergy/AdvReac Type Severity Reaction Status Date / Time No Known Allergies Allergy Verified 07/18/24 20:21 [No Known Allergies*] Review of Systems Review of Systems: As per HPI Yes all other systems are reviewed and are negative Constitutional: Constitutional: Reports as per HPI [facility] Past Medical History Medical History No known health problems Social History Social History Alcohol intake: never Sexual orientation: Straight/Heterosexual Gender identity: Female Physical Exam ED Vital Signs: Vital Signs - 24 hr 07/18/24 20:17 Temperature 98.3 F Pulse Rate 91 Respiratory Rate 16 Blood Pressure 136/91 H Pulse Oximetry 98 Oxygen Delivery Method Room Air BMI result Body Mass Index 20.2 Vital signs have been reviewed and appear to be correct. Blood pressure normal. Heart rate normal. Respiratory rate normal. Temperature normal. Oxygen saturation normal. Const General: cooperative, healthy appearing and no acute distress Orientation/consciousness: oriented to person, oriented to place, oriented to time and patient oriented x3 Limitations: no limitations HENMT Head: Yes normocephalic and Yes atraumatic Ears: external ears normal General nose exam: Normal external nose present Face and sinus: Yes face symmetric Mouth: oropharynx normal and moist mucous membranes Throat: Yes uvula midline Eyes Pupils: Equal, round and reactive pupils present Neck Neck: Yes normal visual inspection and Yes supple Resp Effort & Inspection: normal respiratory effort and able to speak in complete sentences Auscultation: clear to auscultation bilaterally Cardio Rate: regular rate Rhythm: regular rhythm Heart sounds: S1 normal heart sound present and S2 normal heart sound present GI Palpation (GI): Soft to palpation and nontender Auscultation: normoactive bowel sounds General: Yes no CVA tenderness Back/Spine/Pelvis Back: no CVA tenderness Skin Other: fine erythematous maculopapular rash to suprapubic area and bilateral groin General skin exam: elasticity normal and turgor normal Neuro General: oriented to person, oriented to place, oriented to time, patient oriented x3, moves all extremities, no focal motor deficits and CN's II-XI intact bilaterally Cranial nerves: Yes Equal, round and reactive pupils present Cognition (Neuro): normal cognition Extrem General: Yes full ROM, Yes no pedal edema and Yes no calf tenderness Psych Mental Status: mental status grossly normal Affect: normal affect Thought process: Normal thought process present Medical Decision Making Medical Decision Making [facility] Narrative: Patient is a 33-year-old female presenting to the emergency department with complaint of pruritic rash to suprapubic area and bilateral groin for the past 2-3 weeks. On exam patient is awake, A+Ox3, VS WNL, afebrile, normal neurological exam without focal deficits, physical exam findings as above. Given reported symptoms and physical exam findings, initial differential includes but is not limited to intertrigo, contact dermatitis, tinea. Do not suspect TEN/SJS, DRESS, TTP/DIC, necrotizing fasciitis, meningococcemia, SSSS, TSS, anaphylaxis. Advised patient to discontinue all other antihistamines, will start on cetirizine BID as well as famotidine and give additional miconazole cream. Will refer to [facility] for further eval if symptoms persist. Return precautions discussed. Patient verbalized understanding of and agreement with plan. In-person educational sign language interpreter was utilized for all interactions, assessments, and discussions. Differential Diagnosis Differential Diagnoses: The differential diagnosis associated with the presentation includes As per [facility] External Record Review External record reviewed: Inpatient record, Office record and Outpatient record Prescription Management I considered prescription management with: Other Discharge Plan Discharge Clinical Impression: Rash and other nonspecific skin eruption Patient Disposition: Home, Self-Care Instructions: Acute Rash (ED), Skin Yeast Infection (ED) Additional Instructions: You were evaluated in the emergency department today for a rash. This is most likely due to a fungal infection. You are being prescribed two different types of antihistamines, cetirizine and famotidine. DO NOT TAKE ANY benadryl/diphenhydramine/banophen, allegera, loratidine/claritine, or other antihistamines with these medications. You are also being prescribed an antifungal cream, use this as prescribed. If your symptoms do not improve, follow up with the [facility] office. Return to the ED with any new or concerning symptoms. Prescriptions: New cetirizine 10 mg tablet 10 mg PO BID Qty: 28 0RF famotidine 20 mg tablet 20 mg PO DAILY Qty: 14 0RF miconazole nitrate 2 % cream 1 appl topical BID 14 Days Qty: 28 0RF No Action metronidazole 500 mg tablet 500 mg PO BID Qty: 14 1RF metronidazole [Metrogel Vaginal] 0.75 % gel 1 appful vaginal BEDTIME 5 Days Qty: 70 0RF metronidazole 500 mg tablet 500 mg PO Q12H 7 Days Qty: 14 0RF fluconazole [Diflucan] 150 mg tablet 150 mg PO Q3D Qty: 2 0RF amoxicillin 500 mg capsule 500 mg PO Q8H Qty: 20 0RF ibuprofen 800 mg tablet 800 mg PO TID PRN (Reason: pain) Qty: 20 0RF amoxicillin-pot clavulanate 875-125 mg tablet 1 tab PO BID Qty: 20 0RF ibuprofen 600 mg tablet 600 mg PO Q8H PRN (Reason: pain) Qty: 30 0RF chlorhexidine gluconate [Peridex] 0.12 % mouthwash 15 ml buccal BID Qty: 473 0RF tramadol 50 mg tablet 50 mg PO BID PRN (Reason: severe pain (scale score 7-10)) Qty: 6 0RF amoxicillin-pot clavulanate 875-125 mg tablet 1 tab PO Q12H 10 Days Qty: 20 0RF naproxen 500 mg tablet 500 mg PO BID PRN (Reason: pain) 7 Days Qty: 14 0RF miconazole nitrate 2 % cream 1 appl topical BID Qty: 28 0RF diphenhydramine HCl [Allergy (diphenhydramine)] 25 mg capsule 50 mg PO TID PRN (Reason: itching) Qty: 20 0RF prenat.vits,willem,[id number] Tablet 1 tab PO DAILY Qty: 90 3RF Referrals: Alberto Reeder MD [Physician] - Print Language: Indonesian
[2024-07-18 20:35] VITALS: BP 136/91; PULSE 91; RESP 16; TEMP 36.8; O2SAT 98
--- OUTSIDE RECORDS SUMMARY | 2024-07-18 20:41 | XMS_ITS | Encounter Summary ---
Author Organization [employer] Address [address] [address] [facility] [place] [address] Care Team Providers Care Shoe Cementer Name Role Phone Betty Galarza MD Primary Care Provider + Reason for Visit * Reason Comments Allergies Encounter Details Date Type Department Care Team ([facility] st Contact Info) Description 07/14/2024 9:20 AM EDT Office Visit [facility] [address] [place] [address] [phone] Artis Bain MD [address], [place] [phone] Rash (Primary Dx); Elevated blood pressure reading [...] 12:10 AM EDT documented in this encounter Progress Notes * Artis Bain MD - 07/14/2024 9:20 AM EDT Subjective Patient ID: Maggy Rubio is a 33 y.o. female. Garbage Collector: Hector LEMONS Gladys was seen at [facility] 9 days ago for an itchy rash that started 2 weeks prior to visit. It was located in the groin and between the buttocks. Office note mentions that she had been seen for the rash at the [facility] emergency department and was prescribed Benadryl but it made her too drowsy. She was also prescribed topical miconazole and 1 dose of oral fluconazole that did not help. The [facility] ED notes are not available at this time. At the [facility] visit, she was diagnosed with tinea cruris and was advised to stop theBenadryl, prescribed hydroxyzine, hydrocortisone 1% ointment, and oral fluconazole to use once per week for a total of 3 weeks, advised to continue topical miconazole. She returns to walk-in clinic today because the groin and buttock rash and itching is improving, but the itching has spread to to her face, arms, trunk with associated redness, is migratory, comes and goes. Hydroxyzine doesn't help the itching. Has also tried Desitin paste. States had itchy rash of her hands 2 years ago that resolved with prednisone. Denies SOB, swelling, sensation of throat tightness, new medications, soap, shampoo, detergent, or deodorant. Denies tick bite, or known contacts who have a rash. Lives with and 3 children. 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 Smokes 6 cigarettes/day. No EtOH No Illicit substances. The following portions of the chart were reviewed this encounter and updated as appropriate: Review of Systems Constitutional: Negative for fever. Respiratory: Negative for shortness of breath. Cardiovascular: Negative for chest pain. Gastrointestinal: Negative for abdominal pain. Skin: Positive for rash. Neurological: Negative for headaches. Objective Physical Exam Exam conducted with a testing machine operator present. Constitutional: Appearance: Normal appearance. HENT: Right Ear: Tympanic membrane, ear canal and external ear normal. Left Ear: Tympanic membrane, ear canal and external ear normal. Nose: Nose normal. Mouth/Throat: Mouth: Mucous membranes are moist. Pharynx: Oropharynx is clear. Eyes: Conjunctiva/sclera: Conjunctivae normal. Pupils: Pupils are equal, round, and reactive to light. Cardiovascular: Rate and Rhythm: Normal rate and regular rhythm. Heart sounds: No murmur heard. Pulmonary: Effort: Pulmonary effort is normal. Breath sounds: Normal breath sounds. Musculoskeletal: General: Normal range of motion. Cervical back: No tenderness. Skin: Findings: No rash. Comments: Bowling Floor Manager: BRYANT Edwards Exam of bilateral proximal medial thighs reveals minimally erythematous, large, oval macular areas.She showed me a picture on her iPhone of the rash from 1 week ago which was larger and much redder,has greatly improved. No other rashes visible. She has a birthmark consisting of red macule over the mid lower back. Neurological: Mental Status: She is alert. Gait: Gait is intact. Psychiatric: Mood and Affect: Mood normal. Behavior: Behavior normal. Procedures Assessment/Plan Diagnoses and all orders for this visit: Rash Groin rash has improved greatly. She has 1 dose of oral fluconazole remaining to take in 3 days. Because of diffuse migratory itching is unclear. Advised to continue current meds, prescribed betamethasone valerate 0.1% cream for vulvar itching and oral prednisone for diffuse migratory itching. Advised to stop prednisone if the thigh rash worsens. Lab test ordered. Will call patient with results. Has new patient PCP appointment November 04. Return to clinic if not improving. - CBC auto differential; Future - Comprehensive Metabolic Panel; Future - Hemoglobin A1c; Future - TSH with Reflex to Free T4; Future - Vitamin B12; Future - RPR (Monitor) with Reflex to Titer; Future - Hepatitis B Core Antibody, Total; Future - Hepatitis B Surface Antibody, Qualitative; Future - Hepatitis B surface antigen, EIA; Future - Hepatitis C Antibody with Reflex to HCV, RNA, Quantitative, Real-Time PCR; Future - HIV-1/2 Antigen and Antibodies, Fourth Generation, with Reflexes; Future - Chlamydia/N. Gonorrhoeae RNA, TMA, Urogenitial - T-SPOT??.TB; Future - Bacterial Vaginosis; Future Elevated blood pressure reading in office without diagnosis of hypertension Prescribed home BP monitor. Reviewed BP parameters, given written BP log that includes BP parameters, to keep daily. Call if BP readings are elevated. Other orders - nicotine (Nicoderm CQ) 14 MG/24HR patch; Place 1 patch on the skin 1 (one) time each day at the same time. - nicotine (Nicoderm CQ) 7 MG/24HR patch; Place 1 patch on the skin 1 (one) time each day at the same time. - nicotine polacrilex (Commit) 4 MG lozenge; Dissolve 1 lozenge (4 mg) in the mouth every 2 (two) hours if needed for smoking cessation. - Blood Pressure kit; 1 each 2 times daily. - betamethasone valerate (Valisone) 0.1 % cream; Apply topically 2 times daily. - predniSONE (Deltasone) 20 MG tablet; Take 2 tablets (40 mg) by mouth Once per day for 5 days. documented in this encounter Plan of Treatment Upcoming Encounters Date Type Department Care Team (Late st Contact Info) Description 11/04/2024 9:15 AM EDT Office Visit [facility] [address] [place] [phone] Betty Galarza MD [address], [place] [phone] Scheduled Orders Name Type Priority Associated Diagnoses Orde r Schedule Bacterial Vaginosis Microbiology Routine Rash Expected: 07/14/2024 (Approximate), Expires: 07/14/2025 documented as of this encounter Procedures Procedure Name Priority Date/Time Associated Diagnosis Comments T-SPOT(R).TB Routine 07/14/2024 10:00 AM EDT Rash TSH W/REFLEX TO FT4 Routine 07/14/2024 1 0:00 AM EDT Rash CBC WITH AUTO DIFFERENTIAL Routine 07/14/2024 10:00 AM EDT Rash HEPATITIS C AB W/REFL TO HCV RNA, QN, PCR Routine 07/14/2024 10:00 AM EDT Rash CHLAMYDIA/N. GONORRHOEAE RNA, TMA, UROGENITAL Routine 07/14/2024 10:00 AM EDT Rash HEPATITIS B SURFACE ANTIGEN, EIA Routine 07/14/2024 10:00 AM EDT Rash HEPATITIS B CORE AB TOTAL Routine 07/14/2024 10:00 AM EDT Rash RPR (MONITOR) W/REFL TITER Routine 07/14/2024 10:00 AM EDT Rash HIV 1/2 ANTIGEN/ANTIBODY, FOURTH GENERATION W/RFL Routine 07/14/2024 10:00 AM EDT Rash HEPATITIS B SURFACE ANTIBODY, QUALITATIVE Routine 07/14/2024 10:00 AM EDT Rash HEMOGLOBIN A1C Routine 07/14/2024 10:00 AM EDT Rash VITAMIN B12 Routine 07/14/2024 10:00 AM EDT Rash COMPREHENSIVE METABOLIC PANEL Routine 07/14/2024 10:00 AM EDT Rash documented in this encounter Results * T-SPOT??.TB (07/14/2024 10:00 AM EDT) [facility] T Spot TB Negative Negative [facility] Comment:A negative test resu lt does not exclude the possibilityof exposure to or infection with Mycobacteriumtuberculosis (M. tuberculosis). Patients with recentexposure to TB infected individuals exhibiting anegative T-SPOT.TB result should be considered forretesting within 6 weeks or if other relevant clinicalsymptoms indicate. Results from T-SPOT.TB testing mustbe used in conjunction with each individual'sepidemiological history, current medical status,and results of other diagnostic evaluations.The T-SPOT.TB test is qualitative and results arereported as positive, borderline, or negative, giventhat the test controls perform as expected. In linewith the Centers for Disease Control and Prevention's2010 recommendation to report quantitative measurementsalongside the qualitative result, the laboratoryprovides spot counts for informational purposes only.The T-SPOT.TB test should not be interpreted as aquantitative test. TS PANEL A 0 [facility] TS PANEL B 0 [facility] Negative Control Passed [facility] Positive Control Passed [facility] Comment:For additional infor mation, please refer tohttp://education.DNA Direct/faq/GAB564(This link is being provided for informational/educational purposes only.)REPORT COMMENT:REC'D IN SIDDHARTHIS TEST WAS PERFORMED AT:[id number] [place] [phone] W. MASON,MD,PHD 07/14/2024 10:0 0 AM EDT 07/14/2024 11:45 AM EDT us Artis Bain MD LAB BLOOD ORDERABLES Final Resul t [facility] [address] [place] [phone] * Chlamydia/N. Gonorrhoeae RNA, TMA, Urogenitial (07/14/2024 10:00 AM EDT) CT PCR NOT DETECTED Not Detect. [facility] Comment:A not detected test result does not exclude the possibilityof infection because test results can be affected byimproper specimen collection, concurrent antibiotic therapy,or the number of organisms in the specimen which may bebelow the sensitivity of the test. As with many diagnostictests, results from the Xpert CT/NG assay should beinterpreted in conjunction with other laboratory andclinical data available to the clinician.Xpert CT/NG performance has not been evaluated in patientsless than 14 years of age. The assay should not be used forthe evaluationof suspected sexual abuse or for other medico-legalindications. Additional testing is recommended in anycircumstance when false positive or false negative resultscould lead to adverse medical, social or psychologicalconsequences. NG PCR NOT DETECTED Not Detect. [facility] Comment:A not detected test result does not exclude the possibilityof infection because test results can be affected byimproper specimen collection, concurrent antibiotic therapy,or the number of organisms in the specimen which may bebelow the sensitivity of the test. As with many diagnostictests, results from the Xpert CT/NG assay should beinterpreted in conjunction with other laboratory andclinical data available to the clinician.Xpert CT/NG performance has not been evaluated in patientsless than 14 years of age. The assay should not be used forthe evaluationof suspected sexual abuse or for other medico-legalindications. Additional testing is recommended in anycircumstance when false positive or false negative resultscould lead to adverse medical, social or psychologicalconsequences. Swab (Vaginal Swab) 07/14/2024 10:00 AM EDT 07/14/2024 11:46 AM EDT Narrative [facility] - 07/14/2024 2:37 PM EDT Urine Artis Bain MD LAB MICROBIOLOGY - GENERAL ORDER MASON Final Result [facility] [address] [place] [phone] * HIV-1/2 Antigen and Antibodies, Fourth Generation, with Reflexes (07/14/2024 10:00 AM EDT) HIV AB/AG Nonreactive Nonreactive [facility] Comment:HIV-1 p24 Ag and/or HIV-1/HIV-2 Ab not detected.A test result that is nonreactive does not exclude thepossibility of exposure to or infection with HIV-1 and/orHIV-2. Nonreactive results in this assay for individualswith prior exposure to HIV-1 and/or HIV-2 may be due toantigen and antibody levels that are below the limit ofdetection of this assay.The [employer] HIV Ag/Ab Combo assay result andsupplemental assay results should be interpreted inconjunction with the patient's clinical presentation,history and other laboratory results. If the results areinconsistent with clinical evidence, additional testing issuggested to confirm the result. Blood Venous blood specimen / Unknown 07/14/2024 10:00 AM EDT 07/14/2024 11:45 AM EDT us Artis Bain MD LAB BLOOD ORDERABLES Final Resul t Performing Organization Address [facility] Co de Phone Number [facility] [address] [place] [phone] * Hepatitis C Antibody with Reflex to HCV, RNA, Quantitative, Real-Time PCR (07/14/2024 10:00 AM EDT) [facility] Hepatitis C Antibody Nonreactive Nonreactive [facility] Comment:Antibodies to HCV no t detected; does not exclude early acuteHCV infection. Blood Venous blood specimen / Unknown 07/14/2024 10:00 AM EDT 07/14/2024 11:45 AM EDT Result Beatriz Bain MD LAB BLOOD ORDERABLES Final Resul t Performing Organization Address [facility] Phone Number [facility] [address] [place] [phone] * Hepatitis B surface antigen, EIA (07/14/2024 10:00 AM EDT) Pathologist [facility] Hepatitis B Surface Ag Negative Negative [facility] Blood Venous blood specimen / Unknown 07/14/2024 10:00 AM EDT 07/14/2024 11:45 AM EDT us Artis Bain MD LAB BLOOD ORDERABLES Final Resul t Performing Organization Address [facility] de Phone Number [facility] [address] [place] [phone] * Hepatitis B Surface Antibody, Qualitative (07/14/2024 10:00 AM EDT) ~Hepatitis B Surface Antibody REACTIVE Nonreactive [facility] Comment:REACTIVE: > 11.99 mI U/mL Blood Venous blood specimen / Unknown 07/14/2024 10:00 AM EDT 07/14/2024 11:45 AM EDT us Artis Bain MD LAB BLOOD ORDERABLES Final Resul t Performing Organization Address [facility] de Phone Number [facility] [address] [place] [phone] * Hepatitis B Core Antibody, Total (07/14/2024 10:00 AM EDT) Pathologist [facility] Hepatitis B Core Antibody Nonreactive Nonreactive [facility] Blood Venous blood specimen / Unknown 07/14/2024 10:00 AM EDT 07/14/2024 11:45 AM EDT us Artis Bain MD LAB BLOOD ORDERABLES Final Resul t Performing Organization Address [facility] de Phone Number [facility] [address] [place] [phone] * RPR (Monitor) with Reflex to??Titer (07/14/2024 10:00 AM EDT) Pathologist [facility] RPR (Monitor) w/Refl Titer NON-REACTI VE NON-REACT EARNESTINE [facility] Comment:THIS TEST WAS PERFOR MED AT:[employer] [place] [phone] DELGADILLO MD Rapid Plasma Reagin Ab Titer TNP [facility] Blood Venous blood specimen / Unknown 07/14/2024 10:00 AM EDT 07/14/2024 11:45 AM EDT us Artis Bain MD LAB BLOOD ORDERABLES Final Resul t Performing Organization Address [facility] de Phone Number [facility] [address] [place] [phone] * Vitamin B12 (07/14/2024 10:00 AM EDT) Vitamin B12 463 200 - 900 pg/mL [facility] Comment:NORMAL 200-900 PG/ML INDETERMINATE 160-199 PG/ML DEFICIENT < 160 PG/ML Blood Venous blood specimen / Unknown 07/14/2024 10:00 AM EDT 07/14/2024 11:45 AM EDT us Artis Bain MD LAB BLOOD ORDERABLES Final Resul t Performing Organization Address City/[facility]/ZIP Co de Phone Number [facility] [address] [place] [phone] * TSH with Reflex to Free T4 (07/14/2024 10:00 AM EDT) Pathologist [facility] TSH reflex Free T4 1.41 0.32 - 4.0 uIU/mL [facility] Blood Venous blood specimen / Unknown 07/14/2024 10:00 AM EDT 07/14/2024 11:45 AM EDT us Atris Bain MD LAB BLOOD ORDERABLES Final Resul t Performing Organization Address City/[facility]/ZIP Co de Phone Number [facility] [address] [place] [phone] * Hemoglobin A1c (07/14/2024 10:00 AM EDT) Hemoglobin A1c 5.0 <6.0 % [facility] Comment:Hemoglobin A1C Refer ence Range Adults: 4.8 - 6.0 % Non diabetic: < 6.0 % Goal: < 7.0 %Additional Action Suggested: > 8.0 %Note: Hemoglobin A1c results are invalid for patients with abnormal amounts of HbF. Blood transfusions may impact the HbA1c concentration in the patient sample. Estimated Average Glucose 97 mg/dL [facility] Comment:eAG = Estimated ave rage glucose which is %A1C expressed asaverage glucose, using the formula of the T1X-XnpajoxXuycpnq Glucose study (ADAG), Diabetes Care, Vol.31,#8,Nov. 2007 Blood Venous blood specimen / Unknown 07/14/2024 10:00 AM EDT 07/14/2024 11:45 AM EDT us Artis Bain MD LAB BLOOD ORDERABLES Final Resul t [facility] [address] [place] [phone] * (ABNORMAL) Comprehensive Metabolic Panel (07/14/2024 10:00 AM EDT) Sodium 137 135 - 145 mmol/L [facility] Potassium 3.8 3.3 - 5.1 mmol/L [facility] Chloride 106 96 - 108 mmol/L [facility] Carbon Dioxide 24 22 - 29 mmol/L [facility] Anion Gap 11(L) 12 - 20 [facility] Urea Nitrogen (BUN) 10 9 - 16 mg/dL [facility] Creatinine, Serum 0.63 0.5 - 1.4 mg/dL [facility] Estimated Glomerular Filt Rate >60 [facility] Comment:Chronic Kidney Disea se: Estimated GFR < 60 mL/min/1.82j6Rglkxm Kidney Disease: Estimated GFR < 15 mL/min/1.73m2 Glucose 86 60 - 115 mg/dL [facility] Calcium 9.9 8.4 - 10.2 mg/dL [facility] Bilirubin, Total 0.4 0.0 - 1.0 mg/dL [facility] Aspartate Amino Transferase 21 5 - 31 U/L [facility] Alanine Aminotransferase 23 0 - 31 U/L [facility] Total Protein 8.2(H) 6.5 - 8.0 g/dL [facility] Albumin Level 4.7 3.5 - 5.0 g/dL [facility] Alkaline Phosphatase 64 39 - 117 U/L [facility] Blood Venous blood specimen / Unknown 07/14/2024 10:00 AM EDT 07/14/2024 11:45 AM EDT us Artis Bain MD LAB BLOOD ORDERABLES Final Resul t [facility] [address] [place] [phone] * CBC auto differential (07/14/2024 10:00 AM EDT) White Blood Count 7.2 4.8 - 10.8 X10*3/uL [facility] Red Blood Count 4.43 4.20 - 5.50 X10*6/uL [facility] Hemoglobin 13.4 12.0 - 16.0 g/dl [facility] Hematocrit 40.8 37.0 - 47.0 % [facility] Mean Corpuscular Volume 92.1 80.0 - 98.0 fL [facility] Mean Corpuscular Hemoglobin 30.2 27.0 - 33.0 pg [facility] Mean Corpuscular HGB Conc 32.8 31.0 - 35.0 g/dl [facility] Red Cell Distribution Width 13.2 11.0 - 16.0 % [facility] Platelet Count 261 160 - 400 X10*3/uL [facility] Mean Platelet Volume 10.7 9.4 - 12.3 fL [facility] Neutrophils Percent Auto 60.8 45 - 73 % [facility] Imm Gran Pct Auto 0.1 0.0 - 0.4 % [facility] Lymphocytes Percent Auto 28.9 20 - 40 % [facility] Monocytes Percent Auto 7.9 2 - 11 % [facility] Eosinophils Percent Auto 1.5 0 - 4 % [facility] Basophils Percent Auto 0.8 0 - 2 % [facility] NRBC Pct Auto 0.0 0.0 - 0.2 /100WBC [facility] Neutrophils Absolute Auto 4.4 2.0 - 8.3 x10*3/uL [facility] Imm Gran Abs Auto 0.01 0.00 - 0.03 X10*3/uL [facility] Lymphocytes Absolute Auto 2.1 1.2 - 4.9 X10*3/uL [facility] Monocytes Absolute Auto 0.6 0.1 - 1.2 X10*3/uL [facility] Eosinophils Absolute Auto 0.1 0.0 - 0.4 X10*3/uL [facility] Basophils Absolute Auto 0.1 0.0 - 0.2 X10*3/uL [facility] NRBC Abs Auto 0.000 0.0 - 0.012 X10*3/uL [facility] Blood Venous blood specimen / Unknown 07/14/2024 10:00 AM EDT 07/14/2024 11:45 AM EDT us Artis Bain MD LAB BLOOD ORDERABLES Final Resul t [facility] [address] [place] [phone] documented in this encounter Visit Diagnoses Diagnosis Rash- Primary Rash and other nonspecific skin eruption Elevated blood pressure reading in office without diagnosis of hypertension documented in this encounter Care Teams Shoe Cementer Relationship Specialty Start Date End Date Betty Galarza MD [address] [place] [phone] PCP - General Internal Medicine 07/14/24 documented as of this encounter
--- OUTSIDE RECORDS SUMMARY | 2024-07-18 20:41 | XMS_ITS | Encounter Summary ---
Author Organization [employer] Address [address] [place] [address] Care Team Providers Care Laborer Cutting Tool Name Role Phone Betty Galarza MD Primary Care Provider + Encounter Details Date Type Department Care Team ([facility] st Contact Info) Description 07/15/2024 Telephone [facility] [address], [place] [phone] Artis Bain MD [address] [place] [address] Social History Tobacco Use Types Packs/Day Years Used Date Smoking Tobacco: Every Day Cigarettes Smokeless Tobacco: Never Alcohol Use Standard Drinks/Week Comments Not Currently [...] encounter Miscellaneous Notes * Telephone Encounter - Grace Estrada RN - 07/15/2024 11:58 AM EDT Call placed to patient regarding message below. Advised patient that so far her blood tests are negative. Also advised patient that her vaginal swab was + BV. Patient reports she prefers oral medication. Patient also reporting vulvar itching and wondering what topical she can use. Reviewed provider's note from visit yesterday and noted that betamethasone valerate 0.1% was prescribed for this. Reinforced that topical is for use externally only. All questions answered. Patient verbalizes understanding and agreement with plan of care at [place]. [place] [id number] ----- Message from Artis Bain MD sent at 07/15/2024 11:17 AM EDT ----- Please let Maggy know that yesterday's vaginal swab tests were all neg except for BV. Could you askof she prefers vaginal gel or Flagyl tablets? All her blood test results are neg so far with a couple still pending. Thanks. Steffen documented in this encounter Plan of Treatment Upcoming Encounters Date Type Department Care Team (Late st Contact Info) Description 11/04/2024 9:15 AM EDT Office Visit [facility] [address] [place] [address] [phone] Betty Galarza MD [address] [place] [phone] documented as of this encounter Visit Diagnoses Not on filedocumented in this encounter Care Teams Laborer Cutting Tool Relationship Specialty Start Date End Date Betty Galarza MD [address] [place] [phone] PCP - General Internal Medicine 07/14/24 documented as of this encounter
--- OUTSIDE RECORDS SUMMARY | 2024-07-18 20:41 | XMS_ITS | Encounter Summary ---
Author Organization [employer] Address [address] [facility] [address] [place] [address] Care Team Providers Care Bereavement Counselor Name Role Phone Betty Galarza MD Primary Care Provider + Encounter Details Date Type Department Care Team ([facility] Contact Info) Description 07/15/2024 Orders Only [facility] [address] [place] [phone] Artis Bain MD [address] [place] [phone] Social History Tobacco Use Types Packs/Day Years [...] Description 11/04/2024 9:15 AM EDT Office Visit [facility] [address] [place] [phone] Betty Galarza MD [address] [place] [phone] documented as of this encounter Visit Diagnoses Not on filedocumented in this encounter Care Teams Bereavement Counselor Relationship Specialty Start Date End Date Betty Galarza MD [address] [place] [phone] PCP - General Internal Medicine 07/14/24 documented as of this encounter
--- OUTSIDE RECORDS SUMMARY | 2024-07-18 20:41 | XMS_ITS | Encounter Summary ---
Author Organization [employer] Address [address] [facility] [address] [place] [address] Care Team Providers Care [employer] Name Role Phone Betty Galarza MD Primary Care Provider + Encounter Details Date Type Department Care Team (Late st Contact Info) Description 07/14/2024 Orders Only [facility] [address] [place] [phone] Artis Bain MD [address] [place] [phone] Social History Tobacco Use Types Packs/Day Years [...] as of this encounter Miscellaneous Notes * Result Encounter Note - Artis Bain MD - 07/14/2024 11:59 PM EDT Thanks Grace. Sent documented in this encounter Plan of Treatment Upcoming Encounters Date Type Department Care Team (Late st Contact Info) Description 11/04/2024 9:15 AM EDT Office Visit [facility] [address] [place] [phone] Betty Galarza MD [address] [place] [address] documented as of this encounter Procedures Procedure Name Priority Date/Time Associated Diagnosis Comments BACTERIAL VAGINOSIS PANEL Routine 07/14/2024 12:00 AM EDT documented in this encounter Results * (ABNORMAL) Bacterial Vaginosis (07/14/2024 12:00 AM EDT) TRICHOMONAS VAGINALIS DETECTION BY PCR NOT DETECTED Not Detect [facility] BACTERIAL VAGINOSIS DETECTION BY PCR POSITIVE(A) Negative [facility] Comment:The BV organism targ ets of the Xpert Xpress MVP test can becommensal in women; Xpert Xpress MVP positive results forbacterial vaginosis should be considered in conjunction withother clinical and patient information to determine thedisease status. Organisms that are not detected by the XpertXpress MVP test have also been reported to be associatedwith BV and aerobic vaginitis.The Xpert Xpress MVP test performance has not been evaluatedin patients under the age of 14. ABBY GROUP DETECTION BY PCR NOT DETECTED Not Detect [facility] Abby glab krusei PCR NOT DETECTED Not Detect [facility] 07/14/2024 07/14/2024 Artis Bain MD LAB MICROBIOLOGY - GENERAL ORDER MASON Final Result [facility] [address] [place] [phone] documented in this encounter Visit Diagnoses Not on filedocumented in this encounter Care Teams [employer] Relationship Specialty Start Date End Date Betty Galarza MD [address] [place] [phone] PCP - General Internal Medicine 07/14/24 documented as of this encounter
--- OUTSIDE RECORDS SUMMARY | 2024-07-18 20:41 | XMS_ITS | Clinical Summary ---
Author Organization [employer] Address [address] [facility] [address] [place] [address] Care Team Providers Care Water Resource Manager Name Role Phone Betty Galarza MD Primary [...] days. 10 tablet 5 07/20/19 25 Active metroNIDAZOLE (Flagyl) 500 MG tablet Take 1 tablet (500 mg) by mouth after breakfast and after evening meal for 7 days. Avoid alcohol 14 tablet 5 07/23/19 25 Active Encounters * This document contains information received from the source organization and may not represent a complete record from that organization. Date Type Department Care Team Description 07/15/2024 Orders Only [facility] [address] [place] [phone] Artis Bain MD 07/15/2024 Telephone [facility] [address] [address] Pat Rodriguez, BRYANT request for Rx 07/15/2024 Telephone [facility] [address] [place] [phone] Artis Bain MD 07/14/2024 9:20 AM EDT Office Visit [facility] [address] [phone] Artis Bain MD Rash (Primary Dx); Elevated blood pressure reading in office without diagnosis of hypertension 07/14/2024 Orders Only [facility] [address] [address] Artis Bain MD 07/12/[address] [phone] Venancio Conklin MD New pt appt 07/09/2024 [...] Description 11/04/2024 9:15 AM EDT Office Visit [facility] [address] [place] [address] Betty Galarza MD [address] [place], [place] [phone] Health Maintenance Due Date Last Done Comments Depression Screening 1988 Lipid Panel 1988 SDOH Screening 1988 Alcohol/Substance Use Screening 2000 Family Planning (PISQ) 07/28/2003 DTaP/Tdap/Td Vaccines (1 - Tdap) 07/28/2007 Hepatitis [...] older (1 - 1-dose 75+ series) 07/28/2063 HIV Screening Completed 07/14/2024 Hepatitis C Screening Completed 07/14/2024 HIB Vaccines Aged Out No longer eligi [...] on patient's age to complete this topic Procedures Procedure Name Priority Date/Time Associated Diagnosis Comments T-SPOT(R).TB Routine 07/14/2024 10:00 AM EDT Rash HIV 1/2 ANTIGEN/ANTIBODY, FOURTH GENERATION W/RFL Routine 07/14/2024 10:00 AM EDT Rash HEPATITIS C AB W/REFL TO HCV RNA, QN, PCR Routine 07/14/2024 10:00 AM EDT Rash HEPATITIS B SURFACE ANTIGEN, EIA Routine 07/14/2024 10:00 AM EDT Rash HEPATITIS B SURFACE ANTIBODY, QUALITATIVE Routine 07/14/2024 10:00 AM EDT Rash HEPATITIS B CORE AB TOTAL Routine 07/14/2024 10:00 AM EDT Rash RPR (MONITOR) W/REFL TITER Routine 07/14/2024 10:00 AM EDT Rash VITAMIN B12 Routine 07/14/2024 10:00 AM EDT Rash TSH W/REFLEX TO FT4 Routine 07/14/2024 1 0:00 AM EDT Rash HEMOGLOBIN A1C Routine 07/14/2024 10:00 AM EDT Rash COMPREHENSIVE METABOLIC PANEL Routine 07/14/2024 10:00 AM EDT Rash CBC WITH AUTO DIFFERENTIAL Routine 07/14/2024 10:00 AM EDT Rash CHLAMYDIA/N. GONORRHOEAE RNA, TMA, UROGENITAL Routine 07/14/2024 10:00 AM EDT Rash BACTERIAL VAGINOSIS PANEL Routine 07/14/2024 12:00 AM EDT from Last 3 Months Results * T-SPOT??.TB (07/14/2024 10:00 AM EDT) T Spot TB Negative Negative [facility] Comment:A negative test resu lt does [...] as aquantitative test. TS PANEL A 0 [facility] TS PANEL B 0 [facility] Negative Control Passed [facility] Positive Control Passed [facility] Comment:For additional infor matkenrick, please refer tohttp://education.[employer]/faq/XNU491(This link is being provided for informational/educational purposes only.)REPORT COMMENT:REC'D IN CHYTHIS TEST WAS PERFORMED AT:[employer] [id number] [place] [id number] BYRD MD,PHD 07/14/2024 10:0 0 AM EDT 07/14/2024 11:45 AM EDT us Artis Bain MD LAB BLOOD ORDERABLES Final Resul t [facility] [address] [place] [phone] * TSH with Reflex to Free T4 (07/14/2024 10:00 AM EDT) TSH reflex Free T4 1.41 0.32 - 4.0 uIU/mL [facility] Blood Venous blood specimen / Unknown 07/14/2024 10:00 AM EDT 07/14/2024 11:45 AM EDT us Artis Bain MD LAB BLOOD ORDERABLES Final Resul t [facility] [address] [place] [address] [phone] * CBC auto differential (07/14/2024 10:00 AM EDT) White Blood Count 7.2 4.8 - 10.8 X10*3/uL [facility] Red Blood Count 4.43 4.20 - 5.50 X10*6/uL [facility] Hemoglobin 13.4 12.0 - 16.0 g/dl [facility] Hematocrit 40.8 37.0 - 47.0 % [facility] Mean Corpuscular Volume 92.1 80.0 - 98.0 fL [facility] Mean Corpuscular Hemoglobin 30.2 27.0 - 33.0 pg [facility] Mean Corpuscular HGB Conc 32.8 31.0 - 35.0 g/dl [facility] Red Cell Distribution Width 13.2 11.0 - 16.0 % [facility] Platelet Count 261 160 - 400 X10*3/uL [facility] Mean Platelet Volume 10.7 9.4 - 12.3 fL [facility] Neutrophils Percent Auto 60.8 45 - 73 % [facility] Imm Gran Pct Auto 0.1 0.0 - 0.4 % [facility] Lymphocytes Percent Auto 28.9 20 - 40 % [facility] Monocytes Percent Auto 7.9 2 - 11 % [facility] Eosinophils Percent Auto 1.5 0 - 4 % [facility] Basophils Percent Auto 0.8 0 - 2 % [facility] NRBC Pct Auto 0.0 0.0 - 0.2 /100WBC [facility] Neutrophils Absolute Auto 4.4 2.0 - 8.3 x10*3/uL [facility] Imm Gran Abs Auto 0.01 0.00 - 0.03 X10*3/uL [facility] Lymphocytes Absolute Auto 2.1 1.2 - 4.9 X10*3/uL [facility] Monocytes Absolute Auto 0.6 0.1 - 1.2 X10*3/uL [facility] Eosinophils Absolute Auto 0.1 0.0 - 0.4 X10*3/uL [facility] Basophils Absolute Auto 0.1 0.0 - 0.2 X10*3/uL [facility] NRBC Abs Auto 0.000 0.0 - 0.012 X10*3/uL [facility] Blood Venous blood specimen / Unknown 07/14/2024 10:00 AM EDT 07/14/2024 11:45 AM EDT us Artis Bain MD LAB BLOOD ORDERABLES Final Resul t Performing Organization Address [facility] Co de Phone Number [facility] [address] [place] [phone] * Hepatitis C Antibody with Reflex to HCV, RNA, Quantitative, Real-Time PCR (07/14/2024 10:00 AM EDT) Hepatitis C Antibody Nonreactive Nonreactive [facility] Comment:Antibodies to HCV no t detected; does not exclude early acuteHCV infection. Blood Venous blood specimen / Unknown 07/14/2024 10:00 AM EDT 07/14/2024 11:45 AM EDT us Artis Bain MD LAB BLOOD ORDERABLES Final Resul t Performing Organization Address [facility] Co de Phone Number [facility] [address] [place] [phone] * Chlamydia/N. Gonorrhoeae RNA, TMA, Urogenitial (07/14/2024 10:00 AM EDT) CT PCR NOT DETECTED Not Detect. [facility] Comment:A not detected test result does [...] psychologicalconsequences. NG PCR NOT DETECTED Not Detect. [facility] Comment:A not detected test result does [...] AM EDT 07/14/2024 11:46 AM EDT Narrative [facility] - 07/14/2024 2:37 PM EDT Urine Artis Bain MD LAB MICROBIOLOGY - GENERAL ORDER MASON Final Result [facility] [address] [place] [phone] * Hepatitis B surface antigen, EIA (07/14/2024 10:00 AM EDT) Hepatitis B Surface Ag Negative Negative [facility] Blood Venous blood specimen / Unknown 07/14/2024 10:00 AM EDT 07/14/2024 11:45 AM EDT us Artis Bain MD LAB BLOOD ORDERABLES Final Resul t Performing Organization Address [place] de Phone Number [facility] [address] [place] [phone] * Hepatitis B Core Antibody, Total (07/14/2024 10:00 AM EDT) Hepatitis B Core Antibody Nonreactive Nonreactive [facility] Blood Venous blood specimen / Unknown 07/14/2024 10:00 AM EDT 07/14/2024 11:45 AM EDT us Artis Bain MD LAB BLOOD ORDERABLES Final Resul t Performing Organization Address [facility] de Phone Number [facility] [address] [place] [phone] * RPR (Monitor) with Reflex to??Titer (07/14/2024 10:00 AM EDT) RPR (Monitor) w/Refl Titer NON-REACTI VE NON-REACT EARNESTINE [facility] Comment:THIS TEST WAS PERFOR MED AT:[employer] [place] [id number] DELGADILLO MD Rapid Plasma Reagin Ab Titer TNP [facility] Blood Venous blood specimen / Unknown 07/14/2024 10:00 AM EDT 07/14/2024 11:45 AM EDT us Artis Bain MD LAB BLOOD ORDERABLES Final Resul t Performing Organization Address [facility] Co de Phone Number [facility] [address] [place] [phone] * HIV-1/2 Antigen and Antibodies, Fourth Generation, with Reflexes (07/14/2024 10:00 AM EDT) HIV AB/AG Nonreactive Nonreactive [facility] Comment:HIV-1 p24 Ag and/or HIV-1/HIV-2 Ab not detected.A test result that is nonreactive does not exclude thepossibility of exposure to or infection with HIV-1 and/orHIV-2. Nonreactive results in this assay for individualswith prior exposure to HIV-1 and/or HIV-2 may be due toantigen and antibody levels that are below the limit ofdetection of this assay.The [employer] HIV Ag/Ab Combo assay result andsupplemental assay results should be interpreted inconjunction with the patient's clinical presentation,history and other laboratory results. If the results areinconsistent with clinical evidence, additional testing issuggested to confirm the result. Blood Venous blood specimen / Unknown 07/14/2024 10:00 AM EDT 07/14/2024 11:45 AM EDT us Artis Bain MD LAB BLOOD ORDERABLES Final Resul t Performing Organization Address [facility] Co de Phone Number [facility] [address] [place] [phone] * Hepatitis B Surface Antibody, Qualitative (07/14/2024 10:00 AM EDT) ~Hepatitis B Surface Antibody REACTIVE Nonreactive [facility] Comment:REACTIVE: > 11.99 mI U/mL Blood Venous blood specimen / Unknown 07/14/2024 10:00 AM EDT 07/14/2024 11:45 AM EDT us Artis Bain MD LAB BLOOD ORDERABLES Final Resul t Performing Organization Address [facility] Co de Phone Number [facility] [address] [place] [phone] * Hemoglobin A1c (07/14/2024 10:00 AM EDT) Hemoglobin A1c 5.0 <6.0 % [facility] Comment:Hemoglobin A1C Refer ence Range Adults: 4.8 - 6.0 % Non diabetic: < 6.0 % Goal: < 7.0 %Additional Action Suggested: > 8.0 %Note: Hemoglobin A1c results are invalid for patients with abnormal amounts of HbF. Blood transfusions may impact the HbA1c concentration in the patient sample. Estimated Average Glucose 97 mg/dL [facility] Comment:eAG = Estimated ave rage glucose which is %A1C expressed asaverage glucose, using the formula of the W9D-MzjiwejNuractw Glucose study (ADAG), Diabetes Care, Vol.31,#8,Nov. 2007 Blood Venous blood specimen / Unknown 07/14/2024 10:00 AM EDT 07/14/2024 11:45 AM EDT us Artis Bain MD LAB BLOOD ORDERABLES Final Resul t Performing Organization Address [facility] Co de Phone Number [facility] [address] [place] [phone] * Vitamin B12 (07/14/2024 10:00 AM EDT) Vitamin B12 463 200 - 900 pg/mL [facility] Comment:NORMAL 200-900 PG/ML INDETERMINATE 160-199 PG/ML DEFICIENT < 160 PG/ML Blood Venous blood specimen / Unknown 07/14/2024 10:00 AM EDT 07/14/2024 11:45 AM EDT us Artis Bain MD LAB BLOOD ORDERABLES Final Resul t Performing Organization Address [facility] Co de Phone Number [facility] [address] [place] [phone] * (ABNORMAL) Comprehensive Metabolic Panel (07/14/2024 10:00 AM EDT) Sodium 137 135 - 145 mmol/L [facility] Potassium 3.8 3.3 - 5.1 mmol/L [facility] Chloride 106 96 - 108 mmol/L [facility] Carbon Dioxide 24 22 - 29 mmol/L [facility] Anion Gap 11(L) 12 - 20 [facility] Urea Nitrogen (BUN) 10 9 - 16 mg/dL [facility] Creatinine, Serum 0.63 0.5 - 1.4 mg/dL [facility] Estimated Glomerular Filt Rate >60 [facility] Comment:Chronic Kidney Disea se: Estimated GFR < 60 mL/min/1.04q5Goazbn Kidney Disease: Estimated GFR < 15 mL/min/1.73m2 Glucose 86 60 - 115 mg/dL [facility] Calcium 9.9 8.4 - 10.2 mg/dL [facility] Bilirubin, Total 0.4 0.0 - 1.0 mg/dL [facility] Aspartate Amino Transferase 21 5 - 31 U/L [facility] Alanine Aminotransferase 23 0 - 31 U/L [facility] Total Protein 8.2(H) 6.5 - 8.0 g/dL [facility] Albumin Level 4.7 3.5 - 5.0 g/dL [facility] Alkaline Phosphatase 64 39 - 117 U/L [facility] Blood Venous blood specimen / Unknown 07/14/2024 10:00 AM EDT 07/14/2024 11:45 AM EDT us Artis Bain MD LAB BLOOD ORDERABLES Final Resul t [facility] [address] [place], [place] [phone] * (ABNORMAL) Bacterial Vaginosis (07/14/2024 12:00 AM EDT) TRICHOMONAS VAGINALIS DETECTION BY PCR NOT DETECTED Not Detect [facility] BACTERIAL VAGINOSIS DETECTION BY PCR POSITIVE(A) Negative [facility] Comment:The BV organism targ ets [...] DETECTION BY PCR NOT DETECTED Not Detect [facility] Abby glab krusei PCR NOT DETECTED Not Detect [facility] 07/14/2024 07/14/2024 Artis Bain MD LAB MICROBIOLOGY - GENERAL ORDER MASON Final Result [facility] [address] [place] [phone] from Last 3 Months [id number] Care Teams Water Resource Manager Relationship Specialty Start Date End Date Betty Galarza MD [address] [place] [address] PCP - General Internal Medicine 07/14/24
== END 2024-07-18 20:37 | disposition home or self-care (01) ==
PROVIDERS: Emergency Provider Emergency Medicine Emergency Medical Services; PCP Internal Medicine
DX: R21 Rash and other nonspecific skin eruption (principal)
CPT/HCPCS: 99282; 99283